=== PATIENT | male | born 1990 | race African-American/Black ===

== ENCOUNTER 2018-08-29 17:50 | Emergency (ER) | payer SELFPAY ==
[2018-08-29] MEDS ORDERED: TETRACAINE HCL 0.5% 2ML OPTH ONE (18:23)
[2018-08-29] MEDS ORDERED: FLUORESCEIN SODIUM 0.6 MG/WRAP ONE ×2 (18:24→18:53)
[2018-08-29] MEDS ORDERED: TETANUS & DIPHTHERIA TOX,ADULT 0.5 ML VIAL ONE (19:34)
[2018-08-29] MEDS ORDERED: TOBRAMYCIN SULF 0.3% OPTH OINT ONE (19:42)
[2018-08-29] MEDS ORDERED: GENTAMICIN 0.3% OPTH DROP 5ML ONE (19:45)
--- NOTE | 2018-08-29 19:53 | ER ---
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 Transition of care: patient was not received from another setting of care. Onset of symptoms was August 29, 2018. Risk Assessment: Do you want to hurt yourself or someone else? Patient reports no desire to harm self or others. Initial Sepsis Screen: Does the patient meet any 2 criteria? No. Patient's initial sepsis screen is negative. Does the patient have a suspected source of infection? No. Patient's initial sepsis screen is negative. Care prior to arrival: None. 18:18 Method Of Arrival: Ambulatory ph 18:18 Acuity: SHADY 4 ph Triage Assessment: 18:23 General: Appears in no apparent distress. comfortable, Behavior is calm, cooperative, bp appropriate for age. Historical: - Allergies: 18:21 No Known Allergies; ph - Home Meds: 18:21 None [Active]; ph - PMHx: 18:21 None; ph - PSHx: 18:21 None; ph - Immunization history:: Adult Immunizations unknown. - Social history:: Smoking status: Patient uses tobacco products, denies chronic smoking, but will smoke occasionally. - Ebola Screening: : No symptoms or risks identified at this time. Screenin:20 Abuse screen: Denies threats or abuse. Denies injuries from another. Nutritional bp screening: No deficits noted. Tuberculosis screening: No symptoms or risk factors identified. Fall Risk None identified. Assessment: 18:18 General: Appears in no apparent distress. comfortable, Behavior is calm, cooperative, bp appropriate for age. Pain: Complains of pain in right eye and left eye. Neuro: Level of Consciousness is awake, alert, obeys commands, Oriented to person, place, time, situation, Appropriate for age. Cardiovascular: No deficits noted. Respiratory: Airway is patent Respiratory effort is even, unlabored, Respiratory pattern is regular, symmetrical. GI: No signs and/or symptoms were reported involving the gastrointestinal system. : No signs and/or symptoms were reported regarding the genitourinary system. EENT: Reports blurred vision in right eye and left eye. Derm: No deficits noted. Musculoskeletal: Circulation, motion, and sensation intact. Range of motion: intact in all extremities. 19:28 Reassessment: Patient appears in no apparent distress at this time. Patient and/or ed1 family updated on plan of care and expected duration. Pain level reassessed. Patient is alert, oriented x 3, equal unlabored respirations, skin warm/dry/pink. Patient states feeling better. Patient states symptoms have improved. 20:18 Reassessment: Patient appears in no apparent distress at this time. Patient and/or ed1 family updated on plan of care and expected duration. Pain level reassessed. Patient is alert, oriented x 3, equal unlabored respirations, skin warm/dry/pink. Patient states feeling better. Patient states symptoms have improved. Vital Signs: 18:20 BP 142 / 99; Pulse 78; Resp 18; Temp 98.2; Pulse Ox 99% on R/A; Weight 95.25 kg; Height ph 5 ft. 11 in. (180.34 cm); 19:28 BP 136 / 79; Pulse 76; Resp 18; Pulse Ox 97% on R/A; Pain 4/10; ed1 20:18 BP 137 / 81; Pulse 76; Resp 16; Temp 97.5(O); Pulse Ox 99% on R/A; Pain 2/10; ed1 18:20 Body Mass Index 29.29 (95.25 kg, 180.34 cm) ph Visual Acuity: 18:38 Left Eye Visual acuity 20/20, ; Right Eye Visual acuity 20/25, ; Both Eyes Visual bp acuity 20/20; Without Lenses; ED Course: 17:54 Patient arrived in ED. as 18:12 Louie Erazo, JOSE is Primary Nurse. bp 18:20 Naga Goins NP is PHCP. pm1 18:20 Indio Bourgeois MD is Attending Physician. pm1 18:20 Triage completed. ph 18:20 Patient has correct armband on for positive identification. Bed in low position. Call bp light in reach. Side rails up X2. 18:22 Kee Thornton MD is Attending Physician. wang 20:18 No provider procedures requiring assistance completed. Patient did not have IV access ed1 during this emergency room visit. 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 Lot #: [id number]. } Route: IM; Site: left deltoid; 20:01 Follow up: Response: No adverse reaction ed1 19:38 Not Given (Other Intervention Used): Tobramycin Drops (0.3 %) 2 drops Ophthalmic once; ed1 bilateral 19:39 Drug: Gentamicin Drops 0.3 % 2 drops Route: Ophthalmic; Site: both eyes; ed1 20:00 Follow up: Response: No adverse reaction ed1 Outcome: 19:53 Discharge ordered by MD. pm1 20:18 Discharged to home ambulatory. ed1 20:18 Condition: good 20:18 Discharge instructions given to patient, Instructed on discharge instructions, follow up and referral plans. medication usage, Demonstrated understanding of instructions, follow-up care, medications, Prescriptions given X 1. 20:20 Patient left the ED. ed1 Signatures: Kee Thornton MD MD cha Martinez, Amelia as Riggs, Erika, EGG CASER EGG CASER ed1 Sara Marx, RN RN Naga Goins, RAKESH COMMUNICABLE DISEASE SPECIALIST pm1 Louie Erazo, JOSE RN bp Corrections: (The following items were deleted from the chart) 18:20 18:18 Pain: Complains of pain in left eye bp bp 18:20 18:18 EENT: No deficits noted. bp bp
--- NOTE | 2018-08-29 19:54 | EDPHYS ---
Physician Documentation [facility] Name: Rober Pickett Age: 28 yrs Sex: Male : 1990 Arrival Date: 08/29/2018 Time: 17:54 Bed 8 Private MD: ED Physician Kee Thornton HPI: 08/29 19:39 This 28 yrs old Black Male presents to ER via Ambulatory with complaints of Foreign pm1 Body In Eye. 19:39 The patient is experiencing foreign body sensation, caused by debris, dust, possibly pm1 fiberglass at work. Onset: The symptoms/episode began/occurred 2 day(s) ago. Duration: the symptoms are continuous. Aggravated by nothing. Alleviated by eye flush. Patient does not utilize any form of vision correction. Severity of symptoms: in the emergency department the symptoms are unchanged. The patient has not experienced similar symptoms in the past. 19:39 At work with safety glasses and mask. Thinks that when they were dropping the pm1 insulation to the floor the dust from it got stirred into the air and got into his eyes. has been flushing his eyes with water daily. No change in vision. Historical: - Allergies: 18:21 No Known Allergies; ph - Home Meds: 18:21 None [Active]; ph - PMHx: 18:21 None; ph - PSHx: 18:21 None; ph - Immunization history:: Adult Immunizations unknown. - Social history:: Smoking status: Patient uses tobacco products, denies chronic smoking, but will smoke occasionally. - Ebola Screening: : No symptoms or risks identified at this time. ROS: 19:39 Constitutional: Negative for fever, chills, and weight loss. pm1 19:39 ENT: Negative for injury, pain, and discharge, Neck: Negative for injury, pain, and swelling, Cardiovascular: Negative for chest pain, palpitations, and edema, Respiratory: Negative for shortness of breath, cough, wheezing, and pleuritic chest pain, Abdomen/GI: Negative for abdominal pain, nausea, vomiting, diarrhea, and constipation, Back: Negative for injury and pain, : Negative for injury, bleeding, discharge, and swelling, MS/Extremity: Negative for injury and deformity, Skin: Negative for injury, rash, and discoloration, Neuro: Negative for headache, weakness, numbness, tingling, and seizure. 19:39 Eyes: Positive for foreign body sensation, pain, Negative for vision loss, visual disturbance. Exam: 19:39 Visual Acuity: I have reviewed the nursing documentation. pm1 19:39 Constitutional: This is a well developed, well nourished patient who is awake, alert, and in no acute distress. Head/Face: Normocephalic, atraumatic. 19:39 ENT: Nares patent. No nasal discharge, no septal abnormalities noted. Tympanic membranes are normal and external auditory canals are clear. Oropharynx with no redness, swelling, or masses, exudates, or evidence of obstruction, uvula midline. Mucous membranes moist. Neck: Trachea midline, no thyromegaly or masses palpated, and no cervical lymphadenopathy. Supple, full range of motion without nuchal rigidity, or vertebral point tenderness. No Meningismus. Chest/axilla: Normal chest wall appearance and motion. Nontender with no deformity. No lesions are appreciated. Cardiovascular: Regular rate and rhythm with a normal S1 and S2. No gallops, murmurs, or rubs. Normal PMI, no JVD. No pulse deficits. Respiratory: Lungs have equal breath sounds bilaterally, clear to auscultation and percussion. No rales, rhonchi or wheezes noted. No increased work of breathing, no retractions or nasal flaring. Abdomen/GI: Soft, non-tender, with normal bowel sounds. No distension or tympany. No guarding or rebound. No evidence of tenderness throughout. Back: No spinal tenderness. No costovertebral tenderness. Full range of motion. Skin: Warm, dry with normal turgor. Normal color with no rashes, no lesions, and no evidence of cellulitis. MS/ Extremity: Pulses equal, no cyanosis. Neurovascular intact. Full, normal range of motion. 19:39 Eyes: Periorbital structures: appear normal, no swelling, Pupils: no acute changes, normal size, normal reaction to light, Extraocular movements: intact throughout, Conjunctiva: no acute changes, no injection, no abnormal tearing, Corneas: abrasion, is not appreciated, foreign body, is not appreciated, a fluorescein strip employed to appreciate the findings, Anterior chamber: normal, Lids and lashes: appear normal. 19:39 Neuro: Orientation: is normal, Motor: is normal, moves all fours, Gait: is steady, at a normal pace, without difficulty. Vital Signs: 18:20 BP 142 / 99; Pulse 78; Resp 18; Temp 98.2; Pulse Ox 99% on R/A; Weight 95.25 kg; Height ph 5 ft. 11 in. (180.34 cm); 19:28 BP 136 / 79; Pulse 76; Resp 18; Pulse Ox 97% on R/A; Pain 4/10; ed1 20:18 BP 137 / 81; Pulse 76; Resp 16; Temp 97.5(O); Pulse Ox 99% on R/A; Pain 2/10; ed1 18:20 Body Mass Index 29.29 (95.25 kg, 180.34 cm) ph Visual Acuity: 18:38 Left Eye Visual acuity 20/20, ; Right Eye Visual acuity 20/25, ; Both Eyes Visual bp acuity 20/20; Without Lenses; MDM: 18:22 Patient medically screened. wang 19:43 Data reviewed: vital signs. Data interpreted: Pulse oximetry: on room air is 97 %. pm1 Interpretation: normal. Counseling: I had a detailed discussion with the patient and/or guardian regarding: the historical points, exam findings, and any diagnostic results supporting the discharge/admit diagnosis, the need for outpatient follow up, an opthalmologist, to return to the emergency department if symptoms worsen or persist or if there are any questions or concerns that arise at home. 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 Lot #: [id number]. } Route: IM; Site: left deltoid; 20:01 Follow up: Response: No adverse reaction ed1 19:38 Not Given (Other Intervention Used): Tobramycin Drops (0.3 %) 2 drops Ophthalmic once; ed1 bilateral 19:39 Drug: Gentamicin Drops 0.3 % 2 drops Route: Ophthalmic; Site: both eyes; ed1 20:00 Follow up: Response: No adverse reaction ed1 Disposition: 08/29/18 19:53 Discharged to Home. Impression: Foreign body sensation bilateral eyes. - Condition is Stable. - Discharge Instructions: Corneal Abrasion. - Prescriptions for Tobrex 0.3 % Ophthalmic ointment - apply 0.5 inch ribbon by OPHTHALMIC route every 8 hours for 7 days; 1 tube. - Work release form, Medication Reconciliation Form, Thank You Letter, Antibiotic Education, Prescription Opioid Use form. - Follow up: Emergency Department; When: As needed; Reason: Worsening of condition. Follow up: Private Physician; When: 2 - 3 days; Reason: Recheck today's complaints, Continuance of care, Re-evaluation by your physician. - Problem is new. - Symptoms have improved. Addendum: 09/02/2018 06:55 Co-signature as Attending Physician, Kee Thornton MD I agree with the assessment and c tang plan of care. Signatures: Kee Thornton MD MD cha Riggs, Erika, ELASTIC TAPE INSERTER ELASTIC TAPE INSERTER ed1 Sara Marx, RN RN ph Naga Goins, AGENCY OWNER AGENCY OWNER pm1 Louie Erazo, RN RN bp Corrections: (The following items were deleted from the chart) 08/29 20:20 19:53 08/29/2018 19:53 Discharged to Home. Impression: Foreign body sensation bilateral ed1 eyes. Condition is Stable. Forms are Medication Reconciliation Form, Thank You Letter, Antibiotic Education, Prescription Opioid Use. Follow up: Emergency Department; When: As needed; Reason: Worsening of condition. Follow up: Private Physician; When: 2 - 3 days; Reason: Recheck today's complaints, Continuance of care, Re-evaluation by your physician. Problem is new. Symptoms have improved. pm1
[2018-08-29 20:49] VITALS: O2SAT 99
[2018-08-29 20:57] VITALS: BP 137/81; TEMP 97.5
== END 2018-08-29 20:20 | disposition home or self-care (01) ==
LOC: ER 17:50
DX: T15.92XA Foreign body on external eye, part unspecified, left eye, initial encounter (principal); T15.91XA Foreign body on external eye, part unspecified, right eye, initial encounter; X58.XXXA Exposure to other specified factors, initial encounter; Y99.0 Civilian activity done for income or pay; Z23 Encounter for immunization; Z72.0 Tobacco use
CPT/HCPCS: 90714; 99283

== ENCOUNTER 2019-03-29 14:36 | Emergency (ER) | payer SELFPAY ==
[2019-03-29 14:57] LABS: Absolute Lymphocytes (CBC) 2.8 K/uL (0.7-4.9); Hematocrit 46.6 % (39.6-49.0); Lymphocytes % 28.6 % (15.3-44.8); MPV 9.7 fL (7.6-11.3); RBC Red Blood Cell Count 5.37 M/uL (4.33-5.43)
--- NOTE | 2019-03-29 15:14 | RAD REPORT ---
EXAM DESCRIPTION: CT - Stone Protocol - 03/29/2019 3:01 pm CLINICAL HISTORY: Lower back pain, dysuria, hematuria COMPARISON: None. TECHNIQUE: Axial 5 mm thick images were obtained without oral or IV contrast. The [id number] span s the entirety of the system including uppermost abdomen and lung bases. All CT scans are performed using dose optimization technique as appropriate and may include automated exposure control or mA/KV adjustment according to patient size. FINDINGS: No hydronephrosis is present and no obstructing ureteral calculi. No suspicious renal mass es. Isodense masses and pyelonephritis are not excluded on a stone protocol CT scan. No bladder wall thickening suspected. No bladder calculus identifiable. A few phleboliths are seen in the lower right pelvis. No significant adrenal finding. Imaged portions of the liver, spleen and pancreas show no suspicious findings on non-contrast imaging . No gallbladder or biliary tree abnormality identified. No suspicious bowel findings. No hernia, mass or bulky lymphadenopathy noted. No free air, free fluid or inflammatory stranding. No significant bony abnormality. IMPRESSION: Negative CT stone protocol study. Isodense masses and pyelonephritis are not excluded on stone protocol technique. No abnormality to explain the multiple symptoms.
[2019-03-29 15:19] LABS: Albumin 4.6 g/dL (3.4-5.0); Bilirubin Direct 0.1 mg/dL (0-0.2); Bilirubin Total 0.6 mg/dL (0.2-1.0); Potassium 3.7 mmol/L (3.5-5.1); Protein, Total 8.3 g/dL (6.4-8.2)
[2019-03-29] MEDS ORDERED: NA CHLORIDE 0.9% 1,000 ML ONE ×2 (15:39→16:11)
[2019-03-29] MEDS ORDERED: KETOROLAC 30 MG/ML INJ ONE (17:16)
[2019-03-29 17:55] LABS: Urine Blood 2+ (NEG); Urine Glucose NEGATIVE (NEG); Urine Protein TRACE (NEG); Urine Specific Gravity 1.025 (1.005-1.030)
--- NOTE | 2019-03-29 18:10 | EDPHYS ---
Physician Documentation [facility] Name: Rober Pickett Age: 28 yrs Sex: Male : 1990 Arrival Date: 03/29/2019 Time: 14:41 Bed 6 Private MD: ED Physician Kee Thornton HPI: 03/29 14:45 This 28 yrs old Black Male presents to ER via EMS with complaints of Back Pain. jmm 14:45 The patient presents with pain that is acute. Onset: The symptoms/episode jmm began/occurred acutely, 3 day(s) ago. Associated signs and symptoms: Pertinent negatives: vomiting. This is a 28 year old male with a history of htn that presents to the ED with complaints of left flank pain, hematuria for the past 3 days. States having a history of kidney infections. . Historical: - Allergies: 14:42 No Known Allergies; aa5 - PMHx: 14:42 Hypertension; aa5 - PSHx: 14:42 None; aa5 - Immunization history:: Adult Immunizations unknown. - Social history:: Smoking status: Patient uses tobacco products, denies chronic smoking, but will smoke occasionally. - Ebola Screening: : No symptoms or risks identified at this time. ROS: 14:45 Constitutional: Negative for fever, chills, and weight loss, Cardiovascular: Negative jmm for chest pain, palpitations, and edema, Respiratory: Negative for shortness of breath, cough, wheezing, and pleuritic chest pain. 14:45 Abdomen/GI: Positive for abdominal pain. 14:45 Back: Positive for flank pain, on the left. 14:45 : Positive for hematuria. 14:45 All other systems are negative. Exam: 14:45 Head/Face: atraumatic. Eyes: EOMI, no conjunctival erythema appreciated ENT: Moist jmm Mucus Membranes Neck: Trachea midline, Supple Chest/axilla: Normal chest wall appearance and motion. Cardiovascular: Regular rate and rhythm. No edema appreciated Respiratory: Normal respirations, no respiratory distress appreciated 14:45 Constitutional: The patient appears in no acute distress, alert, awake. 14:45 Abdomen/GI: Inspection: abdomen appears normal, Bowel sounds: normal, Palpation: abdomen is soft and non-tender, in all quadrants. 14:45 Back: CVA tenderness, that is mild, is noted on the left. 14:45 : Male external genitalia: normal. 14:45 Neuro: Orientation: is normal, Mentation: is normal, Memory: is normal. 14:45 Psych: Behavior/mood is pleasant, cooperative. Vital Signs: 14:42 BP 162 / 102; Pulse 57; Resp 18; Temp 98.3(TE); Pulse Ox 100% on R/A; Weight 83.91 kg aa5 (R); Height 5 ft. 9 in. (175.26 cm) (R); Pain 7/10; 15:44 BP 127 / 83; Pulse 58; Resp 18 S; Pulse Ox 98% on R/A; Pain 5/10; aa5 16:15 BP 126 / 74; Pulse 56; Resp 16; Pulse Ox 100% ; jl7 14:42 Body Mass Index 27.32 (83.91 kg, 175.26 cm) aa5 MDM: 14:45 Patient medically screened. [facility] 16:50 Data reviewed: vital signs, nurses notes. Counseling: I had a detailed discussion with juarez the patient and/or guardian regarding: the historical points, exam findings, and any diagnostic results supporting the discharge/admit diagnosis, lab results, radiology results, the need for outpatient follow up, to return to the emergency department if symptoms worsen or persist or if there are any questions or concerns that arise at home. ED course: Patient is alert and non toxic in appearance. UA concerning for hematuria and dehydration. Patient given IVF. Patient tolerates PO in the ED. CT negative. CMP WNL. I discussed the patient the need to follow up with Urology for further evaluation of hematuria. Patient otherwise given strict return precautions. Patient understood and agrees with the plan of care. . 03/29 14:45 Order name: Basic Metabolic Panel [facility] 03/29 14:45 Order name: CBC with Diff [facility] 03/29 14:45 Order name: Creatinine for Radiology; Complete Time: 15:22 [facility] 03/29 14:45 Order name: Hepatic Function; Complete Time: 15:22 [facility] 03/29 14:45 Order name: Lipase; Complete Time: 15:22 [facility] 03/29 14:46 Order name: Basic Metabolic Panel; Complete Time: 15:22 [facility] 03/29 14:45 Order name: CT Stone Protocol; Complete Time: 15:22 [facility] 03/29 14:46 Order name: CBC with Automated Diff; Complete Time: 15:22 [facility] 03/29 15:48 Order name: Urine Dipstick--Ancillary (enter results); Complete Time: 18:02 em1 03/29 16:05 Order name: CPK; Complete Time: 16:38 [facility] 03/29 17:04 Order name: US Scrotum Testicles [facility] 03/29 14:45 Order name: IV Saline Lock; Complete Time: 14:52 [facility] 03/29 14:45 Order name: Labs collected and sent; Complete Time: 14:52 [facility] 03/29 14:45 Order name: Urine Dipstick-Ancillary (obtain specimen); Complete Time: 15:30 [facility] 03/29 16:52 Order name: PO challenge; Complete Time: 17:18 [facility] Administered Medications: 15:35 Drug: NS 0.9% 1000 ml Route: IV; Rate: 1 bolus; Site: left antecubital; aa5 16:44 Follow up: IV Status: Completed infusion; IV Intake: 1000ml aa5 16:12 Drug: NS 0.9% 1000 ml Route: IV; Rate: 1 bolus; Site: left antecubital; aa5 18:25 Follow up: IV Status: Completed infusion; IV Intake: 1000ml aa5 17:18 Drug: Ketorolac 30 mg Route: IVP; Site: left antecubital; iw 17:26 Follow up: Response: No adverse reaction aa5 18:25 Drug: Tylenol 650 mg Route: PO; aa5 18:25 Follow up: Response: Medication administered at discharge. aa5 Disposition: 03/30 10:08 Co-signature as Attending Physician, Kee Thornton MD I agree with the assessment and wang plan of care. Disposition: 03/29/19 18:09 Discharged to Home. Impression: Hematuria, Flank Pain. - Condition is Stable. - Discharge Instructions: Flank Pain, Adult, Hematuria, Adult. - Prescriptions for Ibuprofen 600 mg Oral Tablet - take 1 tablet by ORAL route every 8-12 hours As needed take with food; 30 tablet. - Medication Reconciliation Form, Thank You Letter, Antibiotic Education, Prescription Opioid Use, Work release form form. - Follow up: Sloane Prahdan MD; When: 1 - 2 days; Reason: Recheck today's complaints, Continuance of care, Re-evaluation by your physician. Signatures: Dispatcher [employer] EDKee Brandt MD MD cha Mickail, Joel, PA PA jmm Williams, Irene, RN RN iw Jessica Apple RN RN aa5 Corrections: (The following items were deleted from the chart) 03/29 18:31 18:09 03/29/2019 18:09 Discharged to Home. Impression: Hematuria; Flank Pain. Condition aa5 is Stable. Forms are Medication Reconciliation Form, Thank You Letter, Antibiotic Education, Prescription Opioid Use. Follow up: Sloane Pradhan; When: 1 - 2 days; Reason: Recheck today's complaints, Continuance of care, Re-evaluation by your physician. juarez
--- NOTE | 2019-03-29 18:10 | ER ---
Nurse's Notes [facility] Name: Rober Pickett Age: 28 yrs Sex: Male : 1990 Arrival Date: 03/29/2019 Time: 14:41 Bed 6 Private MD: Diagnosis: Hematuria;Flank Pain Presentation: 03/29 14:42 Presenting complaint: Patient states: lower back pain that began 3 days ago. Pt also aa5 reports pain with urination, blood in urine, and decreased urinary output today. Pt states "I work outside in the heat so maybe I am dehydrated". Pt reports nausea and decreased appetite, denies vomiting, denies diarrhea. Transition of care: Under custody with [place] [employer] at bedside. Onset of symptoms was March 2019. Risk Assessment: Do you want to hurt yourself or someone else? Patient reports no desire to harm self or others. Initial Sepsis Screen: Does the patient meet any 2 criteria? No. Patient's initial sepsis screen is negative. Does the patient have a suspected source of infection? No. Patient's initial sepsis screen is negative. Care prior to arrival: None. 14:42 Acuity: SHADY 3 aa5 14:42 Method Of Arrival: EMS: [facility] aa5 Historical: - Allergies: 14:42 No Known Allergies; aa5 - PMHx: 14:42 Hypertension; aa5 - PSHx: 14:42 None; aa5 - Immunization history:: Adult Immunizations unknown. - Social history:: Smoking status: Patient uses tobacco products, denies chronic smoking, but will smoke occasionally. - Ebola Screening: : No symptoms or risks identified at this time. Screenin:45 Abuse screen: Denies threats or abuse. Nutritional screening: No deficits noted. aa5 Tuberculosis screening: No symptoms or risk factors identified. Fall Risk None identified. Assessment: 14:46 General: Appears comfortable, Behavior is calm, cooperative. Pain: Complains of pain in aa5 left low back and right low back Pain does not radiate. Pain currently is 7 out of 10 on a pain scale. Quality of pain is described as sharp, Pain began 2-3 days ago. Is continuous. Neuro: Level of Consciousness is awake, alert, obeys commands, Oriented to person, place, time, situation. Cardiovascular: Heart tones S1 S2 present Rhythm is regular. Respiratory: Airway is patent Respiratory effort is even, unlabored, Respiratory pattern is regular, symmetrical. GI: Abdomen is flat, non-distended, Bowel sounds present X 4 quads. Abd is soft X 4 quads Abdomen is tender to palpation in left upper quadrant and left lower quadrant Reports nausea, Patient currently denies diarrhea, vomiting. : Reports pain with urination, blood in urine and decreased urinary output. EENT: No signs and/or symptoms were reported regarding the EENT system. Derm: Skin is dry, Skin is normal, Skin temperature is warm. Musculoskeletal: Range of motion: intact in all extremities. 15:44 Neuro: Level of Consciousness is awake, alert, obeys commands, Oriented to person, aa5 place, time, situation. Respiratory: Airway is patent Respiratory effort is even, unlabored, Respiratory pattern is regular, symmetrical. Derm: Skin is dry, Skin is normal, Skin temperature is warm. 15:44 Pain: Pain currently is 5 out of 10 on a pain scale. aa5 17:03 Reassessment: Pt c/o increased pain and c/o testicular pain at this time. 8/10 on a aa5 pain scale. PA was notified. . 17:03 Neuro: Level of Consciousness is awake, alert, obeys commands, Oriented to person, aa5 place, time, situation. Respiratory: Airway is patent Respiratory effort is even, unlabored, Respiratory pattern is regular, symmetrical. Derm: Skin is dry, Skin is normal, Skin temperature is warm. 17:26 Reassessment: Awaiting US, pt notified of wait time . aa5 18:25 Neuro: Level of Consciousness is awake, alert, obeys commands, Oriented to person, aa5 place, time, situation. Respiratory: Airway is patent Respiratory effort is even, unlabored, Respiratory pattern is regular, symmetrical. Derm: Skin is dry, Skin is normal, Skin temperature is warm. 18:25 Pain: Pain currently is 6 out of 10 on a pain scale. aa5 Vital Signs: 14:42 BP 162 / 102; Pulse 57; Resp 18; Temp 98.3(TE); Pulse Ox 100% on R/A; Weight 83.91 kg aa5 (R); Height 5 ft. 9 in. (175.26 cm) (R); Pain 7/10; 15:44 BP 127 / 83; Pulse 58; Resp 18 S; Pulse Ox 98% on R/A; Pain 5/10; aa5 16:15 BP 126 / 74; Pulse 56; Resp 16; Pulse Ox 100% ; jl7 14:42 Body Mass Index 27.32 (83.91 kg, 175.26 cm) aa5 ED Course: 14:41 Patient arrived in ED. aa5 14:42 Andrés Delarosa PA is PHCP. jmm 14:42 Arm band placed on. aa5 14:42 Patient has correct armband on for positive identification. Placed in gown. Bed in low aa5 position. Call light in reach. Side rails up X 1. 14:43 Kee Thornton MD is Attending Physician. jm 14:44 Triage completed. aa5 14:45 Jessica Apple, JOSE is Primary Nurse. aa5 14:50 Initial lab(s) drawn, by ED staff, sent to lab. Inserted saline lock: 22 gauge in left aa5 ,using aseptic technique. IV inserted by Jeanna Lopez RN Blood collected. 14:58 CT completed. Patient tolerated procedure well. Patient moved back from CT. bq 15:05 CT Stone Protocol In Process Unspecified. EDMS 16:49 Basic Metabolic Panel Sent. jl7 16:49 CBC with Diff Sent. jl 18:08 Sloane Pradhan MD is Referral Physician. [facility] 18:25 No provider procedures requiring assistance completed. IV discontinued, intact, aa5 bleeding controlled, No redness/swelling at site. Pressure dressing applied. 18:59 US Scrotum Testicles In Process Unspecified. EDMS Administered Medications: 15:35 Drug: NS 0.9% 1000 ml Route: IV; Rate: 1 bolus; Site: left antecubital; aa5 16:44 Follow up: IV Status: Completed infusion; IV Intake: 1000ml aa5 16:12 Drug: NS 0.9% 1000 ml Route: IV; Rate: 1 bolus; Site: left antecubital; aa5 18:25 Follow up: IV Status: Completed infusion; IV Intake: 1000ml aa5 17:18 Drug: Ketorolac 30 mg Route: IVP; Site: left antecubital; iw 17:26 Follow up: Response: No adverse reaction aa5 18:25 Drug: Tylenol 650 mg Route: PO; aa5 18:25 Follow up: Response: Medication administered at discharge. aa5 Intake: 16:44 IV: 1000ml; Total: 1000ml. aa5 18:25 IV: 1000ml; Total: 2000ml. aa5 Output: 15:47 Urine: 100ml (Voided); Total: 100ml. aa5 Outcome: 18:09 Discharge ordered by . juarez 18:25 Discharged to law enforcement ([place] [employer]) aa5 18:25 Condition: stable 18:25 Discharge instructions given to patient, Instructed on discharge instructions, follow up and referral plans. medication usage, Demonstrated understanding of instructions, follow-up care, medications, Prescriptions given X 1. 18:31 Patient left the ED. aa5 Signatures: Dispatcher [employer] EDMS Andrés Delarosa PA PA jmm Quilty, Betty bq Williams, Irene, RN Jessica Granado RN RN aa5 Jeanna Lopez RN RN jl7
[2019-03-29] MEDS ORDERED: ACETAMINOPHEN 325 MG TABLET ONE (18:23)
[2019-03-29 20:24] VITALS: TEMP 98.3
[2019-03-29 20:27] VITALS: BP 126/74; O2SAT 100
--- NOTE | 2019-03-29 20:36 | RAD REPORT ---
EXAM DESCRIPTION: US - Scrotum Testicles - 03/29/2019 6:57 pm CLINICAL HISTORY: Left-sided testicular pain COMPARISON: None. FINDINGS: Bilateral testicular tissue is homogeneous. No focal mass. Doppler evaluation shows normal , symmetric blood flow pattern. No epididymis enlargement or hyperemia. Minimal left hydrocele. No va ricocele or hernia seen. IMPRESSION: Minimal left hydrocele. No other significant finding.
== END 2019-03-29 18:31 | disposition home or self-care (01) ==
LOC: ER 14:36
DX: R10.9 Unspecified abdominal pain (principal); I10 Essential (primary) hypertension; Z72.0 Tobacco use; Z87.442 Personal history of urinary calculi
CPT/HCPCS: 36415; 74176; 76377; 76870; 80048; 80076; 81003; 82550; 83690; 85025; 96361; 96374; 99284; J7030

== ENCOUNTER 2020-06-13 10:40 | Emergency (ER) | payer SELFPAY ==
--- NOTE | 2020-06-13 11:38 | RAD REPORT ---
EXAM DESCRIPTION: RAD - Lumbar Spine 3 Views - 06/13/2020 11:30 am CLINICAL HISTORY: PAIN Radiculopathy COMPARISON: No comparisons FINDINGS: Vertebral body heights appear maintained. No compression fracture noted. Mild disc thinnin g at L5-S1. No spondylolysis or spondylolisthesis. IMPRESSION: Mild lumbosacral spondylosis.
--- NOTE | 2020-06-13 11:38 | RAD REPORT ---
EXAM DESCRIPTION: RAD - Knee Right 3 View - 06/13/2020 11:30 am CLINICAL HISTORY: PAIN COMPARISON: No comparisons FINDINGS: No bone or joint abnormality.
--- NOTE | 2020-06-13 12:14 | EDPHYS ---
Physician Documentation [facility] Name: Rober Pickett Age: 30 yrs Sex: Male : 1990 Arrival Date: 06/13/2020 Time: 10:44 Bed 20 Private MD: MARLEN Physician Kee Thornton HPI: 06/13 12:13 This 30 yrs old Black Male presents to ER via Ambulatory with complaints of Knee Pain, jr8 Back Pain. 12:13 . The patient presents for lower back pain and R knee pain x 1 week. The patient states jr8 that he fell 14 ft from a tree and landed on his lower back. Denies LOC, but reports that his R knee has been giving out since then. Reports that he is has full ROM of the back but experiences soreness when moving. Denies loss of bowel, bladder, or inability to ambulate. States that he previously tore his L meniscus and is concerned that he may have torn his R meniscus due to similar symptoms.. Historical: - Allergies: 10:48 No Known Allergies; aa5 - PMHx: 10:48 Hypertension; aa5 - PSHx: 10:48 None; aa5 - Immunization history:: Adult Immunizations unknown. - Social history:: Smoking status: Patient reports the use of cigarette tobacco products, 1-2 cigarettes a day . ROS: 12:15 Eyes: Negative for injury, pain, redness, and discharge, ENT: Negative for injury, jr8 pain, and discharge, Neck: Negative for injury, pain, and swelling, Cardiovascular: Negative for chest pain, palpitations, and edema, Respiratory: Negative for shortness of breath, cough, wheezing, and pleuritic chest pain, Abdomen/GI: Negative for abdominal pain, nausea, vomiting, diarrhea, and constipation, Skin: Negative for injury, rash, and discoloration, Neuro: Negative for headache, weakness, numbness, tingling, and seizure. 12:15 Back: Positive for pain at rest, pain with movement, of the low back area, Negative for decreased range of motion, radiated pain. 12:15 MS/extremity: Positive for abrasion, pain, tenderness, of the right knee. Exam: 12:15 Head/Face: Normocephalic, atraumatic. Eyes: Pupils equal round and reactive to light, jr8 extra-ocular motions intact. Lids and lashes normal. Conjunctiva and sclera are non-icteric and not injected. Cornea within normal limits. Periorbital areas with no swelling, redness, or edema. ENT: Nares patent. No nasal discharge, no septal abnormalities noted. Tympanic membranes are normal and external auditory canals are clear. Oropharynx with no redness, swelling, or masses, exudates, or evidence of obstruction, uvula midline. Mucous membranes moist. Neck: Trachea midline, no thyromegaly or masses palpated, and no cervical lymphadenopathy. Supple, full range of motion without nuchal rigidity, or vertebral point tenderness. No Meningismus. Chest/axilla: Normal chest wall appearance and motion. Nontender with no deformity. No lesions are appreciated. Cardiovascular: Regular rate and rhythm with a normal S1 and S2. No gallops, murmurs, or rubs. Normal PMI, no JVD. No pulse deficits. Respiratory: Lungs have equal breath sounds bilaterally, clear to auscultation and percussion. No rales, rhonchi or wheezes noted. No increased work of breathing, no retractions or nasal flaring. Abdomen/GI: Soft, non-tender, with normal bowel sounds. No distension or tympany. No guarding or rebound. No evidence of tenderness throughout. Skin: Warm, dry with normal turgor. Normal color with no rashes, no lesions, and no evidence of cellulitis. Neuro: Awake and alert, GCS 15, oriented to person, place, time, and situation. Cranial nerves II-XII grossly intact. Motor strength 5/5 in all extremities. Sensory grossly intact. Cerebellar exam normal. Normal gait. 12:15 Back: pain, that is mild, of the low back area, ROM is painful, normal spinal alignment noted, CVA tenderness, is absent. 12:15 Musculoskeletal/extremity: Extremities: grossly normal except: noted in the right knee: abrasion, pain, tenderness, to anterior portion of knee around patella , ROM: intact in all extremities, full active range of motion, full passive range of motion, limited active range of motion due to pain, limited passive range of motion due to pain, Circulation is intact in all extremities. Sensation intact. Weight bearing: able to fully bear weight, without difficulty. Vital Signs: 10:45 BP 129 / 87; Pulse 62; Resp 18 S; Temp 97.2(O); Pulse Ox 96% on R/A; Weight 83.91 kg aa5 (R); Height 5 ft. 10 in. (177.80 cm) (R); Pain 6/10; 11:49 BP 117 / 80; Pulse 64; Resp 17; Pulse Ox 98% ; bp 12:33 BP 115 / 75; Pulse 63; Resp 16; Pulse Ox 98% ; bp 10:45 Body Mass Index 26.54 (83.91 kg, 177.80 cm) aa5 MDM: 10:55 Patient medically screened. jr8 12:13 Data reviewed: vital signs, nurses notes, radiologic studies, plain films, and as a jr8 result, I will discharge patient. Data interpreted: Pulse oximetry: on room air is 98 %. Interpretation: normal. Counseling: I had a detailed discussion with the patient and/or guardian regarding: the historical points, exam findings, and any diagnostic results supporting the discharge/admit diagnosis, radiology results, the need for outpatient follow up, a orthopedic surgeon, to return to the emergency department if symptoms worsen or persist or if there are any questions or concerns that arise at home. 06/13 11:05 Order name: XRAY Knee RIGHT 3 view; Complete Time: 12:12 jr8 06/13 11:06 Order name: XRAY Lumbar Spine (3 Views); Complete Time: 12:12 jr8 Administered Medications: No medications were administered Disposition: 15:56 Co-signature as Attending Physician, Kee Thornton MD I agree with the assessment and wang plan of care. Disposition: 06/13/20 12:13 Discharged to Home. Impression: Low back pain, Pain in right knee. - Condition is Stable. - Discharge Instructions: Back Pain, Adult, Musculoskeletal Pain, Knee Pain, Heat Therapy. - Prescriptions for meloxicam 15 mg Oral tablet - take 1 tablet by ORAL route once daily As needed; 20 tablet. Robaxin 500 mg Oral Tablet - take 2 tablet by ORAL route every 6 hours As needed; 40 tablet. - Medication Reconciliation Form, Thank You Letter, Antibiotic Education, Prescription Opioid Use, Work release form form. - Follow up: Edwardo Kyle MD; When: 5 - 6 days; Reason: Recheck today's complaints, Continuance of care, Re-evaluation by your physician. - Problem is new. - Symptoms have improved. Signatures: Dispatcher [employer] EDMS Kee Thornton MD MD cha Williams, Irene, RN RN iw Jessica Apple, RN RN aa5 Kenrick Roman PA PA jr8 Corrections: (The following items were deleted from the chart) 12:38 12:13 06/13/2020 12:13 Discharged to Home. Impression: Low back pain; Pain in right iw knee. Condition is Stable. Forms are Medication Reconciliation Form, Thank You Letter, Antibiotic Education, Prescription Opioid Use. Follow up: Dr. Edwardo Kyle; When: 5 - 6 days; Reason: Recheck today's complaints, Continuance of care, Re-evaluation by your physician. Problem is new. Symptoms have improved. jr8
--- NOTE | 2020-06-13 12:14 | ER ---
Nurse's Notes [facility] Name: Rober Pickett Age: 30 yrs Sex: Male : 1990 Arrival Date: 06/13/2020 Time: 10:44 Bed 20 Private MD: Diagnosis: Low back pain;Pain in right knee Presentation: 06/13 10:45 Chief complaint: Patient states: "I fell on both my knees about a week ago and both my aa5 knees are hurting but my right knee feels like it's giving out". Pt also c/o low back pain. 10:45 Coronavirus screen: Client denies travel out of the [place] in the last 14 days. At this aa5 time, the client does not indicate any symptoms associated with coronavirus-19. Ebola Screen: Patient negative for fever greater than or equal to 101.5 degrees Fahrenheit, and additional compatible Ebola Virus Disease symptoms. Initial Sepsis Screen: Does the patient meet any 2 criteria? No. Patient's initial sepsis screen is negative. Does the patient have a suspected source of infection? No. Patient's initial sepsis screen is negative. Risk Assessment: Do you want to hurt yourself or someone else? Patient reports no desire to harm self or others. Onset of symptoms was May 2020. 10:45 Method Of Arrival: Ambulatory aa5 10:45 Acuity: SHADY 4 aa5 Triage Assessment: 10:45 General: Appears in no apparent distress. comfortable, Behavior is calm, cooperative, bp appropriate for age. Pain: Complains of pain in right knee and left knee. EENT: No deficits noted. Neuro: No deficits noted. Cardiovascular: No deficits noted. Respiratory: No deficits noted. GI: No signs and/or symptoms were reported involving the gastrointestinal system. : No signs and/or symptoms were reported regarding the genitourinary system. Derm: No deficits noted. Musculoskeletal: Circulation, motion, and sensation intact. Range of motion: intact in all extremities, Reports pain in right knee and left knee. Historical: - Allergies: 10:48 No Known Allergies; aa5 - PMHx: 10:48 Hypertension; aa5 - PSHx: 10:48 None; aa5 - Immunization history:: Adult Immunizations unknown. - Social history:: Smoking status: Patient reports the use of cigarette tobacco products, 1-2 cigarettes a day . Screenin:00 Abuse screen: Denies threats or abuse. Denies injuries from another. Nutritional bp screening: No deficits noted. Tuberculosis screening: No symptoms or risk factors identified. Fall Risk None identified. Assessment: 11:05 General: SEE TRIAGE NOTE. bp 11:49 Reassessment: Patient appears in no apparent distress at this time. Patient and/or bp family updated on plan of care and expected duration. Pain level reassessed. Patient is alert, oriented x 3, equal unlabored respirations, skin warm/dry/pink. PT RETURNED FROM RADIOLOGY. 12:33 Reassessment: PT D/C HOME AMBULATORY, DX WITH MUSCULOSKELETAL PAIN. Neuro: Moves all bp extremities. Full function Gait is steady. Vital Signs: 10:45 BP 129 / 87; Pulse 62; Resp 18 S; Temp 97.2(O); Pulse Ox 96% on R/A; Weight 83.91 kg aa5 (R); Height 5 ft. 10 in. (177.80 cm) (R); Pain 6/10; 11:49 BP 117 / 80; Pulse 64; Resp 17; Pulse Ox 98% ; bp 12:33 BP 115 / 75; Pulse 63; Resp 16; Pulse Ox 98% ; bp 10:45 Body Mass Index 26.54 (83.91 kg, 177.80 cm) aa5 ED Course: 10:44 Patient arrived in ED. as 10:45 Arm band placed on Patient placed in an exam room, on a stretcher. aa5 10:55 Kenrick Roman [facility]. jr8 10:55 Kee Thornton MD is Attending Physician. jr8 10:57 Triage completed. aa5 11:00 Patient has correct armband on for positive identification. Bed in low position. Call bp light in reach. Side rails up X2. 11:21 Louie Erazo, RN is Primary Nurse. bp 11:30 XRAY Knee RIGHT 3 view In Process Unspecified. EDMS 11:30 XRAY Lumbar Spine (3 Views) In Process Unspecified. EDMS 12:13 Edwardo Kyle MD is Referral Physician. jr8 12:33 No provider procedures requiring assistance completed. Patient did not have IV access bp during this emergency room visit. Administered Medications: No medications were administered Outcome: 12:13 Discharge ordered by . jr8 12:33 Discharged to home ambulatory. bp 12:33 Condition: stable 12:33 Discharge instructions given to patient, Instructed on discharge instructions, follow up and referral plans. medication usage, Demonstrated understanding of instructions, follow-up care, medications, Prescriptions given X 2. 12:38 Patient left the ED. iw Signatures: Dispatcher [employer] Ernestine Hook Irene, RN RN iw Jessica Apple RN RN aa5 Kenrick Roman PA PA 8 Louie Erazo RN RN bp
[2020-06-13 12:48] VITALS: TEMP 97.2
[2020-06-13 12:49] VITALS: O2SAT 98
[2020-06-13 12:51] VITALS: BP 115/75
== END 2020-06-13 12:38 | disposition home or self-care (01) ==
LOC: ER 10:40
DX: M25.561 Pain in right knee (principal); I10 Essential (primary) hypertension; F17.210 Nicotine dependence, cigarettes, uncomplicated
CPT/HCPCS: 72100; 99283

== ENCOUNTER 2020-11-25 23:22 | Emergency (ER) | payer SELFPAY ==
[2020-11-25 23:46] LABS: Absolute Lymphocytes (CBC) 1.3 K/uL (0.7-4.9); Basophils % 0.4 % (0-1.3); Hematocrit 45.9 % (39.6-49.0); Lymphocytes % 13.5 % (15.3-44.8); MPV 9.6 fL (7.6-11.3)
[2020-11-25] MEDS ORDERED: ASPIRIN 81 MG CHEWABLE TABLET ONE (23:47)
[2020-11-25] MEDS ORDERED: ONDANSETRON 4 MG/2 ML VIAL ONE (23:48)
[2020-11-25] MEDS ORDERED: KETOROLAC 30 MG/ML INJ ONE (23:48)
[2020-11-25] MEDS ORDERED: NA CHLORIDE 0.9% 1,000 ML ONE (23:48)
[2020-11-25] MEDS ORDERED: METOPROLOL TAR 25 MG TAB ONE (23:48)
[2020-11-25 23:55] LABS: Protime INR 1.21
[2020-11-26 00:11] LABS: Urine Blood 1+ (Negative); Urine Glucose Negative (Negative); Urine Protein 1+ (Negative); Urine Specific Gravity >=1.030 (1.005-1.030)
[2020-11-26 00:31] LABS: ALT/SGPT 20 U/L (12-78); AST/SGOT 16 U/L (15-37); Albumin 4.7 g/dL (3.4-5.0); Alkaline Phosphatase 64 U/L (45-117); BUN Blood Urea Nitrogen 15 mg/dL (7-18); Bicarbonate 25 mmol/L (21-32); Bilirubin Direct 0.2 mg/dL (0-0.2); Bilirubin Total 0.6 mg/dL (0.2-1.0); Glucose Level 91 mg/dL (74-106); Magnesium 2.1 mg/dL (1.8-2.4); NT PRO-BNP 14 pg/mL (<125); Potassium 3.6 mmol/L (3.5-5.1); Protein, Total 8.3 g/dL (6.4-8.2); Sodium Level 142 mmol/L (136-145); Troponin (Emerg Dept Use Only) < 0.02 ng/mL (0.0-0.045)
[2020-11-26 00:49] LABS: Barbiturates NEGATIVE (NEGATIVE); Benzodiazepines NEGATIVE (NEGATIVE); Cocaine NEGATIVE (NEGATIVE); METHAMPHETAM NEGATIVE (NEGATIVE); Methadone NEGATIVE (NEGATIVE); Opiates NEGATIVE (NEGATIVE); Phencyclidine NEGATIVE (NEGATIVE); THC Cannibis POSITIVE (NEGATIVE)
[2020-11-26] MEDS ORDERED: MORPHINE 2 MG/ML SYR ONE (01:14)
--- NOTE | 2020-11-26 03:42 | ER ---
Nurse's Notes [facility] Name: Roebr Pickett Age: 30 yrs Sex: Male : 1990 Arrival Date: 11/25/2020 Time: 23:23 Bed 6 Private MD: Diagnosis: Chest pain, unspecified Presentation: 11/25 23:23 Chief complaint: EMS states: NAUSEA AND VOMITING STARTED IN THE MORNING, WITH SOB AND rv CHEST PAIN, 8/10. WORSE WITH MOVEMENT. Coronavirus screen: Client denies travel out of the [place] in the last 14 days. Ebola Screen: No symptoms or risks identified at this time. Initial Sepsis Screen: Does the patient meet any 2 criteria? No. Patient's initial sepsis screen is negative. Does the patient have a suspected source of infection? No. Patient's initial sepsis screen is negative. Risk Assessment: Do you want to hurt yourself or someone else? Patient reports no desire to harm self or others. Onset of symptoms was November 25, 2020. 23:23 Method Of Arrival: EMS: [facility] rv 23:23 Acuity: SHADY 3 rv Triage Assessment: 23:25 General: Appears comfortable, Behavior is calm, cooperative. Pain: Complains of pain in rv chest. Neuro: Level of Consciousness is awake, alert, obeys commands, Oriented to person, place, time, situation. Cardiovascular: Patient's skin is warm and dry. Rhythm is sinus rhythm. Respiratory: Airway is patent Respiratory effort is even, unlabored, Breath sounds are clear bilaterally. Derm: Skin is healthy with good turgor. Historical: - Allergies: 23:25 No Known Allergies; rv - PMHx: 23:25 Hypertension; rv - PSHx: 23:25 None; rv - Immunization history:: Adult Immunizations up to date. - Social history:: Smoking status: Patient reports the use of cigarette tobacco products, Patient uses street drugs, marijuana. Screenin:26 Abuse screen: Denies threats or abuse. Denies injuries from another. Nutritional rv screening: No deficits noted. Tuberculosis screening: No symptoms or risk factors identified. Fall Risk None identified. Assessment: 23:27 Pain: Pain does not radiate. Pain began 1 day ago. rv Vital Signs: 23:23 BP 157 / 90; Pulse 65; Resp 16; Temp 98.7; Pulse Ox 100% on R/A; Weight 85.28 kg; rv Height 5 ft. 10 in. (177.80 cm); Pain 6/10; 04 01:10 BP 107 / 66; Pulse 57; Resp 16; Pulse Ox 100% on R/A; rv 02:22 BP 105 / 67; Pulse 60; Resp 18; Pulse Ox 100% on R/A; mg2 03:45 BP 110 / 68; Pulse 61; Resp 18; Temp 98; Pulse Ox 100% on R/A; mg2 04 23:23 Body Mass Index 26.97 (85.28 kg, 177.80 cm) rv ED Course: 11/25 23:23 Patient arrived in ED. rv 23:23 Kee Grant PA is PHCP. cp 23:23 Vlad Gunn MD is Attending Physician. cp 23:25 Triage completed. rv 23:25 Arm band placed on right wrist. Patient placed in the treatment room, on a stretcher, rv Patient notified of wait time. 23:26 No provider procedures requiring assistance completed. Initial lab(s) drawn, by ED rv staff, sent to lab. EKG done, by ED staff, reviewed by Kee LOMBARDI. Inserted saline lock: 20 gauge in right antecubital area, using aseptic technique. Blood collected. BY MIKO GARCIA. Patient maintains SpO2 saturation greater than 95% on room air. 23:27 Nicola Alexandra, JOSE is Primary Nurse. rv 23:27 Patient has correct armband on for positive identification. campus monitor on. Pulse rv ox on. NIBP on. 23:53 XRAY Chest (1 view) In Process Unspecified. EDMS 11/26 03:45 IV discontinued, intact, bleeding controlled, No redness/swelling at site. Pressure mg2 dressing applied. Administered Medications: 11/25 23:39 Drug: Aspirin Chewable Tablet 324 mg Route: PO; rv 11/26 02:21 Follow up: Response: No adverse reaction mg2 11/25 23:39 Drug: Zofran (Ondansetron) 4 mg Route: IVP; Site: right antecubital; rv 11/26 02:21 Follow up: Response: No adverse reaction mg2 11/25 23:39 Drug: TORadol - Ketorolac 15 mg Route: IVP; Site: right antecubital; rv 11/26 02:21 Follow up: Response: No adverse reaction mg2 11/25 23:39 Drug: Metoprolol 25 mg Route: PO; rv 11/26 02:20 Follow up: Response: No adverse reaction mg2 11/25 23:40 Drug: NS 0.9% 1000 ml Route: IV; Rate: 1 bolus; Site: right antecubital; rv 11/26 02:22 Follow up: Response: No adverse reaction; IV Status: Completed infusion; IV Intake: mg2 1000ml 01:06 Drug: morphine 2 mg Route: IVP; Site: right antecubital; rv 02:21 Follow up: Response: No adverse reaction mg2 Intake: 02:22 IV: 1000ml; Total: 1000ml. mg2 Outcome: 03:41 Discharge ordered by MD. deleon 03:46 Discharged to Law Enforcement mg2 03:46 Condition: stable 03:46 Discharge instructions given to patient, police, Instructed on discharge instructions, follow up and referral plans. Demonstrated understanding of instructions, follow-up care. 03:46 Patient left the ED. mg2 Signatures: Dispatcher [employer] EDMS Kee Grant PA PA cp Gardose, Michele, RN RN mg2 Nicola Alexandra RN RN Vlad Otto MD MD [id number]
--- NOTE | 2020-11-26 03:42 | EDPHYS ---
Physician Documentation [facility] Name: Rober Pickett Age: 30 yrs Sex: Male : 1990 Arrival Date: 11/25/2020 Time: 23:23 Bed 6 Private MD: ED Physician Vlad Gunn HPI: 11/25 23:25 This 30 yrs old Black Male presents to ER via EMS with complaints of Chest Pain. cp 23:25 The patient or guardian reports chest pain that is located primarily in the anterior cp chest wall. 23:25 The pain does not radiate. Associated signs and symptoms: Pertinent positives: cp headache, nausea, vomiting, Pertinent negatives: abdominal pain, lower extremity pain, lower extremity swelling, shortness of breath. Historical: - Allergies: 23:25 No Known Allergies; rv - PMHx: 23:25 Hypertension; rv - PSHx: 23:25 None; rv - Immunization history:: Adult Immunizations up to date. - Social history:: Smoking status: Patient reports the use of cigarette tobacco products, Patient uses street drugs, marijuana. ROS: 23:25 Cardiovascular: Positive for chest pain, Negative for edema, palpitations. cp 23:25 Constitutional: Negative for body aches, chills, fever, poor PO intake. cp Exam: 23:26 ECG was reviewed by the Attending Physician. cp 23:30 Constitutional: The patient appears in no acute distress, alert, awake, cp non-diaphoretic, non-toxic, well developed, well nourished. 23:30 Head/Face: Normocephalic, atraumatic. cp 23:30 Eyes: Periorbital structures: appear normal, Conjunctiva: normal, no exudate, no cp injection, Sclera: no appreciated abnormality, Lids and lashes: appear normal, bilaterally. 23:30 ENT: External ear(s): are unremarkable, Nose: is normal, Posterior pharynx: Airway: no cp evidence of obstruction, patent. 23:30 Chest/axilla: Inspection: normal, Palpation: is normal, no crepitus, no tenderness. 23:30 Cardiovascular: Rate: normal, Rhythm: regular, Heart sounds: murmur, not appreciated, Edema: is not appreciated, JVD: is not appreciated. 23:30 Respiratory: the patient does not display signs of respiratory distress, Respirations: normal, no use of accessory muscles, no retractions, labored breathing, is not present, accessory muscle usage, is absent, Breath sounds: are clear throughout, no decreased breath sounds, no stridor, no wheezing. 23:30 Abdomen/GI: Inspection: abdomen appears normal, Palpation: abdomen is soft and non-tender, in all quadrants. 23:30 Back: pain, is absent, ROM is normal. 23:30 Neuro: Orientation: to person, place \T\ time. Mentation: is normal, Motor: moves all fours, strength is normal. Vital Signs: 23:23 BP 157 / 90; Pulse 65; Resp 16; Temp 98.7; Pulse Ox 100% on R/A; Weight 85.28 kg; rv Height 5 ft. 10 in. (177.80 cm); Pain 01/26; 11/26 01:10 BP 107 / 66; Pulse 57; Resp 16; Pulse Ox 100% on R/A; rv 02:22 BP 105 / 67; Pulse 60; Resp 18; Pulse Ox 100% on R/A; mg2 03:45 BP 110 / 68; Pulse 61; Resp 18; Temp 98; Pulse Ox 100% on R/A; mg2 11/25 23:23 Body Mass Index 26.97 (85.28 kg, 177.80 cm) rv MDM: 11/25 23:25 Patient medically screened. cp 23:50 Differential diagnosis: abnormal EKG, acute myocardial infarction, acute pericarditis, cp chest wall pain, pleurisy, pneumonia, pneumothorax, pulmonary embolus, stable angina, unstable angina. 11/26 03:39 HEART Score: History: Slightly Suspicious (0), ECG: Normal (0), Age: < or = 45 years mh7 (0), Risk Factors: 1 or 2 risk factors (1), [Hypertension] Troponin: < or = 1 x Normal Limit (0), Total Score = 1. Data reviewed: vital signs, nurses notes, lab test result(s), cardiac enzymes, CBC, electrolytes, urine drug screen, EKG, radiologic studies, plain films. Data interpreted: Pulse oximetry: on room air is 100 %. Interpretation: normal. Counseling: I had a detailed discussion with the patient and/or guardian regarding: the historical points, exam findings, and any diagnostic results supporting the discharge/admit diagnosis, lab results, radiology results, the need for outpatient follow up, to return to the emergency department if symptoms worsen or persist or if there are any questions or concerns that arise at home. Response to treatment: the patient's symptoms have resolved after treatment, the patient's blood pressure is in an acceptable range, mental status has returned to baseline, the patient no longer shows bradycardia, the patient is not short of breath, the patient is not tachycardic, the patient's pain is gone, the patient's temperature has normalized. 11/25 23:24 Order name: Basic Metabolic Panel cp 11/25 23:24 Order name: CBC with Diff cp 11/25 23:24 Order name: LFT's cp 11/25 23:24 Order name: Magnesium cp 11/25 23:24 Order name: NT PRO-BNP cp 11/25 23:24 Order name: PT-INR cp 11/25 23:24 Order name: Troponin (emerg Dept Use Only); Complete Time: 00:33 cp 11/25 23:24 Order name: UDS; Complete Time: 01:30 cp 11/25 23:26 Order name: Basic Metabolic Panel; Complete Time: 00:33 EDMS 04 00:33 Interpretation: Normal except: CL 109; GFR 78. cp 11/25 23:26 Order name: CBC with Automated Diff; Complete Time: 00:33 EDMS 0410 00:34 Interpretation: Normal except: OWEN% 75.8; LYM% 13.5. cp 11/25 23:26 Order name: Liver (Hepatic) Function; Complete Time: 00:33 EDMS 11/25 23:26 Order name: Magnesium; Complete Time: 00:33 EDMS 11/25 23:26 Order name: NT PRO-BNP; Complete Time: 00:33 EDMS 11/25 23:26 Order name: Protime (+INR); Complete Time: 00:33 EDMS 11/25 23:24 Order name: XRAY Chest (1 view) cp 11/25 23:24 Order name: EKG; Complete Time: 23:26 cp 11/25 23:24 Order name: Cardiac monitoring; Complete Time: 23:37 cp 11/25 23:24 Order name: EKG - Nurse/Tech; Complete Time: 23:37 cp 11/25 23:24 Order name: IV Saline Lock; Complete Time: 23:37 cp 11/25 23:24 Order name: Labs collected and sent; Complete Time: 23:37 cp 11/26 00:12 Order name: Urine Dipstick-Ancillary; Complete Time: 00:33 EDMS 11/26 00:34 Interpretation: Normal except: UKET 2+; UBLD 1+; UPROT 1+. cp 11/26 00:21 Order name: SARS-COV-2 RT PCR; Complete Time: 00:33 EDMS 11/26 01:31 Order name: Troponin I: redraw at 0300; Complete Time: 03:37 cp 11/25 23:24 Order name: O2 Per Protocol; Complete Time: 23:37 cp 11/25 23:24 Order name: O2 Sat Monitoring; Complete Time: 23:37 cp EC/09 23:26 Rate is 61 beats/min. Rhythm is regular. DE interval is normal. QRS interval is normal. cp QT interval is normal. T waves are Inverted in lead aVR. Interpreted by me. Reviewed by me. Administered Medications: 23:39 Drug: Aspirin Chewable Tablet 324 mg Route: PO; rv 11/26 02:21 Follow up: Response: No adverse reaction mg2 11/25 23:39 Drug: Zofran (Ondansetron) 4 mg Route: IVP; Site: right antecubital; rv 11/26 02:21 Follow up: Response: No adverse reaction mg2 11/25 23:39 Drug: TORadol - Ketorolac 15 mg Route: IVP; Site: right antecubital; rv 11/26 02:21 Follow up: Response: No adverse reaction mg2 11/25 23:39 Drug: Metoprolol 25 mg Route: PO; rv 11/26 02:20 Follow up: Response: No adverse reaction mg2 11/25 23:40 Drug: NS 0.9% 1000 ml Route: IV; Rate: 1 bolus; Site: right antecubital; rv 11/26 02:22 Follow up: Response: No adverse reaction; IV Status: Completed infusion; IV Intake: mg2 1000ml 01:06 Drug: morphine 2 mg Route: IVP; Site: right antecubital; rv 02:21 Follow up: Response: No adverse reaction mg2 Disposition: 05:37 Co-signature as Attending Physician, Vlad Gunn MD. mh7 Disposition: 11/26/20 03:41 Discharged to Home. Impression: Chest pain, unspecified. - Condition is Stable. - Discharge Instructions: Nonspecific Chest Pain, [id number]. - Medication Reconciliation Form, Thank You Letter, Antibiotic Education, Prescription Opioid Use form. - Follow up: Private Physician; When: 1 - 2 days; Reason: Worsening of condition, Recheck today's complaints, Continuance of care, Re-evaluation by your physician. - Problem is new. - Symptoms are resolved. Signatures: Dispatcher [employer] [facility] Kee Grant PA PA cp Man Mack, RN RN mg2 Nicola Alexandra RN RN rv Vlad Gunn MD MD mh7 Corrections: (The following items were deleted from the chart) 11/25 23:45 23:29 CORONAVIRUS+MR.LAB.BRZ ordered. [facility] 11/26 00:07 11/25 23:25 Associated signs and symptoms: Pertinent positives: headache, cp cp 11/26 03:46 03:41 11/26/2020 03:41 Discharged to Home. Impression: Chest pain, unspecified. mg2 Condition is Stable. Forms are Medication Reconciliation Form, Thank You Letter, Antibiotic Education, Prescription Opioid Use. Follow up: Private Physician; When: 1 - 2 days; Reason: Worsening of condition, Recheck today's complaints, Continuance of care, Re-evaluation by your physician. Problem is new. Symptoms are resolved. mh7
--- NOTE | 2020-11-26 10:15 | EKG ---
Test Date: 2020-11-25 Test Time: 23:22:26 Parking Analyst: RR MEASUREMENT RESULTS: Intervals: Rate: 61 FL: 130 QRSD: 86 QT: 412 QTc: 414 Webster: P: 45 FL: 130 QRS: 79 T: 54 INTERPRETIVE STATEMENTS: Normal sinus rhythm Normal ECG Compared to ECG 05/29/2013 15:39:22 Sinus bradycardia no longer present Electronically Signed On 11-26-20 10:15:05 CDT by Rich Sauer
--- NOTE | 2020-11-26 11:29 | RAD REPORT ---
EXAM DESCRIPTION: RAD - Chest Single View - 11/25/2020 11:53 pm CLINICAL HISTORY: CHEST PAIN COMPARISON: Two view chest May 2013 TECHNIQUE: AP portable chest image was obtained 11/25/2020 11:53 pm . FINDINGS: Lungs are clear. Heart and vasculature are normal. No measurable pleural effusion and no p neumothorax. No acute bony abnormality seen. No acute aortic findings suspected. IMPRESSION: No acute cardiopulmonary process. No significant change from comparison study.
[2020-11-26 14:57] VITALS: O2SAT 100
[2020-11-26 15:01] VITALS: BP 110/68; TEMP 98
== END 2020-11-26 03:46 | disposition home or self-care (01) ==
LOC: ER 23:22
DX: R07.9 Chest pain, unspecified (principal); Z20.822 Contact with and (suspected) exposure to COVID-19; F17.210 Nicotine dependence, cigarettes, uncomplicated; I10 Essential (primary) hypertension
CPT/HCPCS: 36415; 71045; 80048; 80076; 80307; 81003; 83735; 83880; 84484; 85025; 85610; 93005; 96361; 96374; 96375; 99285; J2270; J2405; J7030; U0003

== ENCOUNTER 2022-02-22 08:00 | Emergency (ER) | payer SELFPAY ==
[2022-02-22] MEDS ORDERED: IBUPROFEN 200 MG TAB PO ONE (09:27)
--- NOTE | 2022-02-22 10:23 | EDPHYS ---
Physician Documentation [facility] Name: Rober Pickett Age: 31 yrs Sex: Male : 1990 Arrival Date: 02/22/2022 Time: 08:02 Bed Waiting Private MD: ED Physician Leonid Mi HPI: 02/22 10:17 This 31 yrs old Black Male presents to ER via Ambulatory with complaints of Sore Throat.ms3 10:17 The patient presents with sore throat. The patient describes throat pain as raw, ms3 scratchy. Onset: The symptoms/episode began/occurred acutely, 2 day(s) ago. Severity of symptoms: At their worst the symptoms were moderate, in the emergency department the symptoms are unchanged. Modifying factors: The symptoms are alleviated by nothing, the symptoms are aggravated by swallowing. Associated signs and symptoms: Pertinent positives: Sore throat Pertinent negatives chest pain, shortness of breath. Historical: - Allergies: 08:29 No Known Allergies; ss - Home Meds: 08:29 lisinopril 10 mg Oral tab 1 tab once daily [Active]; ss - PMHx: 08:29 Hypertension; ss - PSHx: 08:29 None; ss - Immunization history:: Client reports having NOT received the Covid vaccine. - Social history:: Smoking status: Patient denies any tobacco usage or history of. ROS: 10:17 Cardiovascular: Negative for chest pain, and palpitations. ms3 10:17 Skin: Negative for injury, rash, and discoloration, Neuro: Negative for headache, weakness, numbness, tingling. Psych: Negative for depression, anxiety, suicide ideation, homicidal ideation, and hallucinations. 10:17 Constitutional: Positive for chills. 10:17 ENT: Positive for sore throat. 10:17 Respiratory: Positive for cough. 10:17 All other systems are negative. Exam: 10:17 Constitutional: This is a well developed, well nourished patient who is awake, alert, ms3 and in no acute distress. Head/Face: Normocephalic, atraumatic. 10:17 ENT: Mouth: Oral mucosa: moist, Posterior pharynx: Tonsils: are normal in appearance, Uvula: midline, non-edematous, no erythema, Erythema of posterior pharynx. L > R pain. Vital Signs: 08:27 Pulse 89; Resp 15; Pulse Ox 100% on R/A; Weight 81.65 kg; Height 5 ft. 9 in. (175.26 ss cm); Pain 6/10; 08:27 Temp 98.9(O); ss 09:08 BP 128 / 82; Pulse 84; ss 08:27 Body Mass Index 26.58 (81.65 kg, 175.26 cm) ss MDM: 08:05 Patient medically screened. ms3 10:17 Differential diagnosis: pharyngitis, upper respiratory infection, viral syndrome COVID. ms3 Data reviewed: vital signs, nurses notes, lab test result(s), and as a result, I will discharge patient. Counseling: I had a detailed discussion with the patient and/or guardian regarding: the historical points, exam findings, and any diagnostic results supporting the discharge/admit diagnosis, lab results, the need for outpatient follow up, to return to the emergency department if symptoms worsen or persist or if there are any questions or concerns that arise at home. ED course: Patient states he would like to leave prior to completion of COVID results. Discussed strep positive, physical exam findings with patient. Patient to follow-up with primary care physician in 2 to 3 days. Patient understands and agrees with plan. All questions were answered. Return precautions discussed include worsening symptoms, or any other concerns. On reevaluation patient is alert and oriented x4, in no apparent distress, nontoxic-appearing, speaking full sentences, ambulatory in emergency department, tolerating po. 02/22 08:16 Order name: Rapid Strep ms3 02/22 08:18 Order name: Group A Streptococcus Rapid Sc; Complete Time: 10:15 EDMS 02/22 08:41 Order name: COVID-19 SARS RT PCR (Document "Date of Onset" if Symptomatic) ss Administered Medications: 09:22 Drug: Ibuprofen 600 mg Route: PO; ss 10:36 Follow up: Response: No adverse reaction; Pain is decreased ss Disposition Summary: 02/22/22 10:22 Discharge Ordered Location: Home ms3 Condition: Stable ms3 Diagnosis - Streptococcal pharyngitis ms3 - Pain in throat ms3 - Chills (without fever) ms3 Followup: ms3 - With: Cuauhtemoc Roman, DO - When: 2 - 3 days - Reason: Recheck today's complaints Discharge Instructions: - Discharge Summary Sheet ms3 - Pharyngitis ms3 - Strep Throat, Adult, [id number] ms3 Forms: - Work release form ss - Family Work Release ss - Medication Reconciliation Form ms3 - Thank You Letter ms3 - Antibiotic Education ms3 - Prescription Opioid Use ms3 Prescriptions: - Amoxicillin 500 mg Oral Capsule - take 1 capsule by ORAL route every 12 hours for 7 days; 14 tablet; Refills: 0, ms3 Product Selection Permitted Signatures: Dispatcher [employer] Rosemarie Cole, JOSE RN ss Leonid Mi, DO ms3
--- NOTE | 2022-02-22 10:23 | ER ---
Nurse's Notes [facility] Name: Rober Pickett Age: 31 yrs Sex: Male : 1990 Arrival Date: 02/22/2022 Time: 08:02 Bed Waiting [facility] MD: Diagnosis: Streptococcal pharyngitis;Pain in throat;Chills (without fever) Presentation: 02/22 08:27 Chief complaint: Patient states: Sore throat x2 days and fever that began last night. ss Coronavirus screen: Client denies travel out of the [place] in the last 14 days. Ebola Screen: Patient denies exposure to infectious person. Patient denies travel to an Ebola-affected area in the 21 days before illness onset. Initial Sepsis Screen: Does the patient meet any 2 criteria? No. Patient's initial sepsis screen is negative. Does the patient have a suspected source of infection? No. Patient's initial sepsis screen is negative. Risk Assessment: Do you want to hurt yourself or someone else? Patient reports no desire to harm self or others. Onset of symptoms was February 20, 2022. 08:27 Method Of Arrival: Ambulatory ss 08:27 Acuity: SHADY 4 ss Historical: - Allergies: 08:29 No Known Allergies; ss - Home Meds: 08:29 lisinopril 10 mg Oral tab 1 tab once daily [Active]; ss - PMHx: 08:29 Hypertension; ss - PSHx: 08:29 None; ss - Immunization history:: Client reports having NOT received the Covid vaccine. - Social history:: Smoking status: Patient denies any tobacco usage or history of. Screenin:34 Abuse screen: Denies threats or abuse. Denies injuries from another. Nutritional ss screening: No deficits noted. Tuberculosis screening: Never had TB. Fall Risk None identified. Assessment: 10:34 Reassessment: Patient appears in no apparent distress at this time. Patient and/or ss family updated on plan of care and expected duration. Pain level reassessed. Patient is alert, oriented x 3, equal unlabored respirations, skin warm/dry/pink. Reassessment: Patient states feeling better. Neuro: Level of Consciousness is awake, alert, obeys commands. Vital Signs: 08:27 Pulse 89; Resp 15; Pulse Ox 100% on R/A; Weight 81.65 kg; Height 5 ft. 9 in. (175.26 ss cm); Pain 6/10; 08:27 Temp 98.9(O); ss 09:08 BP 128 / 82; Pulse 84; ss 08:27 Body Mass Index 26.58 (81.65 kg, 175.26 cm) ED Course: 08:02 Patient arrived in ED. rg4 08:06 Leonid Mi DO is Attending Physician. ms3 08:28 Triage completed. ss 08:29 Arm band placed on right wrist. ss 10:22 Cuauhtmeoc Roman DO is Referral Physician. ms3 10:34 Patient has correct armband on for positive identification. Bed in low position. Call ss light in reach. 10:34 No provider procedures requiring assistance completed. Patient did not have IV access ss during this emergency room visit. Administered Medications: 09:22 Drug: Ibuprofen 600 mg Route: PO; ss 10:36 Follow up: Response: No adverse reaction; Pain is decreased ss Medication: 10:34 VIS not applicable for this client. ss Outcome: 10:22 Discharge ordered by . ms3 10:34 Discharged to home ambulatory, with family. ss 10:34 Condition: good 10:34 Discharge instructions given to patient, Instructed on discharge instructions, follow up and referral plans. Demonstrated understanding of instructions, follow-up care, medications, Prescriptions given X 1. 10:36 Patient left the ED. Signatures: Rosemarie Humphreys, RN RN Mihaela Rangel rg4 Leonid Mi DO DO ms3
[2022-02-22 10:44] VITALS: TEMP 98.9; O2SAT 100
[2022-02-22 10:46] VITALS: BP 128/82
== END 2022-02-22 10:36 | disposition home or self-care (01) ==
LOC: ER 08:00
DX: U07.1 COVID-19 (principal); J02.0 Streptococcal pharyngitis; R68.83 Chills (without fever); I10 Essential (primary) hypertension
CPT/HCPCS: 87081; U0003

== ENCOUNTER 2022-05-19 15:05 | Emergency (ER) | payer SELFPAY ==
--- OUTSIDE RECORDS SUMMARY | 2022-05-19 15:08 | XMS REPORT | Continuity of Care Document ---
:1990 Author Organization [facility] t Address [address] [place] [address] Dr. Gonzalez [address] [place] [id number] Care Team Providers Name Role Phone Unavailable Unavailable Unavailable Problems This patient has no known problems. Allergies, Adverse Reactions, Alerts This patient has no known allergies or adverse reactions. Medications This patient has no known medications. Procedures This patient has no known procedures. Results This patient has no known results.
--- NOTE | 2022-05-19 15:37 | ER ---
Nurse's Notes [facility] Name: Rober Pickett Age: 32 yrs Sex: Male : 1990 Arrival Date: 05/19/2022 Time: 15:07 Bed 5 Private MD: Diagnosis: Chest pain, unspecified;Anxiety Presentation: 05/19 15:05 Chief complaint: EMS states: Pt was left in back of vehicle for approximately 10-15 mb9 minutes without air conditioning. Pt developed left sided chest pain that radiates to back. Pt states pain is 2/10. Coronavirus screen: Vaccine status: Patient reports being unvaccinated. Ebola Screen: Patient denies travel to an Ebola-affected area in the 21 days before illness onset. 15:05 Method Of Arrival: EMS: [facility] mb9 15:05 Initial Sepsis Screen: Does the patient meet any 2 criteria? No. Patient's initial mb9 sepsis screen is negative. Does the patient have a suspected source of infection? No. Patient's initial sepsis screen is negative. Risk Assessment: Do you want to hurt yourself or someone else? Patient reports no desire to harm self or others. Onset of symptoms was May 19, 2022. 15:05 Acuity: SHADY 3 mb9 Triage Assessment: 15:05 General: Appears in no apparent distress. Behavior is calm, cooperative, appropriate mb9 for age. Pain: Complains of pain in Left of chest, posterior chest and back. 15:05 Cardiovascular: Reports chest pain, Heart tones S1 S2 present Rhythm is regular Chest mb9 pain is described as Pain is 2 out of 10 on a pain scale. quality is pressure, tightness is located in left posterior chest wall radiates to left back began 1 hour prior to arrival episodes are intermittent. Historical: - Allergies: 15:20 Acetaminophen; jl7 - Home Meds: 15:20 lisinopril 10 mg Oral tab 1 tab once daily [Active]; jl7 - PMHx: 15:20 Hypertension; jl7 - Immunization history:: Adult Immunizations unknown. - Social history:: Smoking status: unknown. Vital Signs: 15:05 BP 128 / 82; Pulse 61; Resp 16; Temp 99.3(O); Pulse Ox 100% on R/A; Weight 88.45 kg mb9 (R); Height 5 ft. 9 in. (175.26 cm) (R); Pain 2/10; 15:05 Body Mass Index 28.80 (88.45 kg, 175.26 cm) mb9 ED Course: 15:07 Patient arrived in ED. eb 15:08 Joyce Che MD is Attending Physician. sd2 15:13 EKG done, by ED staff, reviewed by Joyce Che MD. em1 15:14 Toshia Tadeo, RN is Primary Nurse. mb9 15:20 Triage completed. mb9 15:20 Arm band placed on right wrist. jl7 Administered Medications: No medications were administered Outcome: 15:36 Discharge ordered by . sd2 15:59 Patient left the ED. jl7 Signatures: Lazaro Clark em1 Jeanna Lopez, RN RN jl7 Rubina Tucker Stephanie, MD MD sd2 Toshia Tadeo, RN RN mb9
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
[2022-05-19 16:28] VITALS: BP 128/82; TEMP 99.3; O2SAT 100
--- NOTE | 2022-05-21 14:15 | EKG ---
Test Date: 2022-05-19 Test Time: 15:07:10 Multiple Pressure Riveter Operator: JAYLON MEASUREMENT RESULTS: Intervals: Rate: 57 HI: 134 QRSD: 86 QT: 398 QTc: 387 [place]: P: HI: 134 QRS: 161 T: 184 INTERPRETIVE STATEMENTS: Sinus bradycardia Left posterior fascicular block Inferior infarct, age undetermined Abnormal ECG Compared to ECG 11/25/2020 23:22:26 Left posterior fascicular block now present Myocardial infarct finding now present Sinus rhythm no longer present Electronically Signed On 05-21-22 14:13:32 CDT by Flaco [place]
== END 2022-05-19 15:59 | disposition home or self-care (01) ==
LOC: ER 15:05
DX: R07.9 Chest pain, unspecified (principal); F41.9 Anxiety disorder, unspecified; I10 Essential (primary) hypertension; Z88.6 Allergy status to analgesic agent
CPT/HCPCS: 93005; 99283

== ENCOUNTER 2022-08-16 08:18 | Emergency (ER) | payer SELFPAY ==
--- OUTSIDE RECORDS SUMMARY | 2022-08-16 08:20 | XMS REPORT | Continuity of Care Document ---
:1990 Author Organization [facility] t Address [address] [place] [address] Dr. Gonzalez [address] [place] [id number] Care Team Providers Name Role Phone Unavailable Unavailable Unavailable Problems This patient has no known problems. Allergies, Adverse Reactions, Alerts This patient has no known allergies or adverse reactions. Medications This patient has no known medications. Procedures This patient has no known procedures. Results This patient has no known results.
[2022-08-16] MEDS ORDERED: IBUPROFEN 400 MG TAB ONE (08:37)
[2022-08-16] MEDS ORDERED: HYDROCODONE/APAP 7.5/325 MG TAB ONE (08:37)
[2022-08-16] MEDS ORDERED: AMOX/K CLAV 875 MG TAB ONE (08:38)
--- NOTE | 2022-08-16 08:41 | ER ---
Nurse's Notes [facility] Name: Rober Pickett Age: 32 yrs Sex: Male : 1990 Arrival Date: 08/16/2022 Time: 08:21 Bed IW3 Private MD: Diagnosis: Disorder of teeth and supporting structures, unspecified Presentation: 08/16 08:27 Chief complaint: Patient states: R EAR PAIN RADIATING TO R MANDIBLE x2 DAYS. bp Coronavirus screen: At this time, the client does not indicate any symptoms associated with coronavirus-19. Ebola Screen: No symptoms or risks identified at this time. Initial Sepsis Screen: Does the patient meet any 2 criteria? No. Patient's initial sepsis screen is negative. Does the patient have a suspected source of infection? No. Patient's initial sepsis screen is negative. Risk Assessment: Do you want to hurt yourself or someone else? Patient reports no desire to harm self or others. Onset of symptoms was August 14, 2022. 08:27 Method Of Arrival: Ambulatory bp 08:27 Acuity: SHADY 4 bp Triage Assessment: 08:29 General: Appears uncomfortable, Behavior is calm, cooperative, appropriate for age. bp Pain: Complains of pain in lower right first molar. EENT: Ear canal clear on right ear and left ear. Neuro: No deficits noted. Cardiovascular: No deficits noted. Respiratory: No deficits noted. GI: No signs and/or symptoms were reported involving the gastrointestinal system. : No signs and/or symptoms were reported regarding the genitourinary system. Derm: No deficits noted. Musculoskeletal: No deficits noted. Historical: - Allergies: 08:31 No Known Allergies; bp - Home Meds: 08:29 lisinopril 10 mg Oral tab 1 tab once daily [Active]; bp - PMHx: 08:29 Hypertension; bp - Immunization history:: Adult Immunizations up to date. - Social history:: Smoking status: unknown. Screenin:45 [facility] ED Fall Risk Assessment (Adult) History of falling in the last 3 months, bp including since admission No falls in past 3 months (0 pts). Abuse screen: Denies threats or abuse. Denies injuries from another. Nutritional screening: No deficits noted. Tuberculosis screening: No symptoms or risk factors identified. Assessment: 08:45 Reassessment: PT DC HOME. bp Vital Signs: 08:27 BP 158 / 101; Pulse 79; Resp 16; Temp 98.2; Pulse Ox 100% ; Weight 89.81 kg; Height 5 bp ft. 9 in. (175.26 cm); 08:27 Body Mass Index 29.24 (89.81 kg, 175.26 cm) bp ED Course: 08:21 Patient arrived in ED. am2 08:21 Kee Grant PA is PHCP. cp 08:21 Joyce Che MD is Attending Physician. cp 08:29 Triage completed. bp 08:29 Arm band placed on. bp 08:45 Louie Erazo, RN is Primary Nurse. bp 08:45 Patient has correct armband on for positive identification. Adult w/ patient. bp 08:45 No provider procedures requiring assistance completed. Patient did not have IV access bp during this emergency room visit. Administered Medications: 08:38 Drug: Augmentin (Amoxicillin-Clavulanate) 875 mg Route: PO; bp 08:46 Follow up: Response: No adverse reaction bp 08:38 Drug: Ibuprofen 800 mg Route: PO; bp 08:46 Follow up: Response: No adverse reaction bp 08:38 Drug: Hydrocodone-Acetaminophen (7.5 mg-325 mg) 1 tabs Route: PO; bp 08:46 Follow up: Response: No adverse reaction bp Medication: 08:45 VIS not applicable for this client. bp Outcome: 08:40 Discharge ordered by MD. cp 08:45 Discharged to home ambulatory, with family. bp 08:45 Condition: stable 08:45 Discharge instructions given to patient, Instructed on discharge instructions, follow up and referral plans. medication usage, Demonstrated understanding of instructions, follow-up care, medications, Prescriptions given X 2. 08:47 Patient left the ED. bp Signatures: Kee Grant PA PA cp Lamar Christian am2 Louie Erazo, RN RN bp Corrections: (The following items were deleted from the chart) 08:32 08:29 Allergies: ACETAMINOPHEN; bp bp
--- NOTE | 2022-08-16 08:41 | EDPHYS ---
Physician Documentation [facility] Name: Rober Pickett Age: 32 yrs Sex: Male : 1990 Arrival Date: 08/16/2022 Time: 08:21 Bed IW3 Private MD: ED Physician Joyce Che HPI: 08/16 08:32 This 32 yrs old Black Male presents to ER via Ambulatory with complaints of Ear Pain, cp Toothache. 08:33 The patient presents with pain. The problem is located in the lower right first molar. cp Onset: The symptoms/episode began/occurred 2 day(s) ago. Duration: The symptoms are continuous, and are steadily getting worse. Associated signs and symptoms: Pertinent positives: right jaw and right ear pain, Pertinent negatives: cough, fever, lightheadedness, rhinorrhea, sinus trouble, sore throat. Historical: - Allergies: 08:31 No Known Allergies; bp - Home Meds: 08:29 lisinopril 10 mg Oral tab 1 tab once daily [Active]; bp - PMHx: 08:29 Hypertension; bp - Immunization history:: Adult Immunizations up to date. - Social history:: Smoking status: unknown. ROS: 08:35 Eyes: Negative for injury, pain, redness, and discharge. cp 08:35 Constitutional: Negative for body aches, chills, fever, poor PO intake. 08:35 ENT: Positive for dental pain, ear pain, Negative for drainage from ear(s), sinus congestion, sinus pain, sore throat, difficulty swallowing, difficulty handling secretions. 08:35 Cardiovascular: Negative for chest pain, palpitations. 08:35 Respiratory: Negative for cough, shortness of breath, wheezing. 08:35 Abdomen/GI: Negative for abdominal pain, nausea, vomiting, and diarrhea. 08:35 Skin: Negative for cellulitis, rash. 08:35 Neuro: Negative for altered mental status, dizziness, headache, weakness. 08:35 All other systems are negative. Exam: 08:37 Head/Face: Normocephalic, atraumatic. cp 08:37 Constitutional: The patient appears in no acute distress, alert, awake, non-toxic, well developed, well nourished, uncomfortable. 08:37 Eyes: Periorbital structures: appear normal, Conjunctiva: normal, no exudate, no injection, Lids and lashes: appear normal, bilaterally. 08:37 ENT: External ear(s): are unremarkable, Ear canal(s): are normal, clear, TM's: dullness, bilaterally, Nose: is normal, Mouth: Lips: moist, Oral mucosa: pink and intact, moist, Tongue: is normal, abscess, is not appreciated, Posterior pharynx: is normal, airway is patent, no erythema, no exudate, Dental exam: abscess, is not appreciated, dental caries, that is moderate, diffusely, fractured teeth are noted, specifically the lower right first molar (#30), gum swelling, that is mild, specifically in the right lower inner palate, pain, that is moderate, specifically in the lower right first molar (#30), Voice: is normal. 08:37 Neck: ROM/movement: is normal, is supple, without pain, no range of motions limitations, no meningismus, no nuchal rigidity, Lymph nodes: no appreciated lymphadenopathy. 08:37 Chest/axilla: Inspection: normal. 08:37 Cardiovascular: Rate: normal. 08:37 Respiratory: the patient does not display signs of respiratory distress, Respirations: normal, no use of accessory muscles, no retractions, labored breathing, is not present. Vital Signs: 08:27 BP 158 / 101; Pulse 79; Resp 16; Temp 98.2; Pulse Ox 100% ; Weight 89.81 kg; Height 5 bp ft. 9 in. (175.26 cm); 08:27 Body Mass Index 29.24 (89.81 kg, 175.26 cm) bp MDM: 08:35 Differential diagnosis: otitis media, otitis externa, cerumen impaction, dental caries, cp dental abscess. 08:40 Patient medically screened. cp 08:40 Data reviewed: vital signs, nurses notes. cp 08:40 Counseling: I had a detailed discussion with the patient and/or guardian regarding: the cp historical points, exam findings, and any diagnostic results supporting the discharge/admit diagnosis, the need for outpatient follow up, for definitive care, a dentist, to return to the emergency department if symptoms worsen or persist or if there are any questions or concerns that arise at home. Response to treatment: the patient's symptoms have mildly improved after treatment, and as a result, I will discharge patient. Administered Medications: 08:38 Drug: Augmentin (Amoxicillin-Clavulanate) 875 mg Route: PO; bp 08:46 Follow up: Response: No adverse reaction bp 08:38 Drug: Ibuprofen 800 mg Route: PO; bp 08:46 Follow up: Response: No adverse reaction bp 08:38 Drug: Hydrocodone-Acetaminophen (7.5 mg-325 mg) 1 tabs Route: PO; bp 08:46 Follow up: Response: No adverse reaction bp Disposition Summary: 08/16/22 08:40 Discharge Ordered Location: Home cp Problem: new cp Symptoms: have improved cp Condition: Stable cp Diagnosis - Disorder of teeth and supporting structures, unspecified cp Followup: cp - With: Private Physician - When: 2 - 3 days - Reason: Recheck today's complaints Discharge Instructions: - Discharge Summary Sheet cp - Dental Pain cp Forms: - Medication Reconciliation Form cp - Thank You Letter cp - Antibiotic Education cp - Prescription Opioid Use cp Prescriptions: - Amoxicillin 875 mg Oral Tablet - take 1 tablet by ORAL route every 12 hours for 10 days; 20 tablet; Refills: 0, cp Product Selection Permitted - Diclofenac Sodium 75 mg Oral Tablet Sustained Release - take 1 tablet by ORAL route 2 times per day; 30 tablet; Refills: 0, Product cp Selection Permitted Addendum: 08/20/2022 12:36 STAFF ATTESTATION STATEMENT: I was immediately available onsite in the emergency s d2 department for consultation in the care of this patient. I did not see or examine this patient. Joyce Che MD. Signatures: Kee Grant PA PA cp Peltier, Brian, RN RN Joyce Milligan MD MD sd2 Corrections: (The following items were deleted from the chart) 08/16 08:32 08:29 Allergies: ACETAMINOPHEN; bp bp
[2022-08-16 08:51] VITALS: BP 158/101; TEMP 98.2; O2SAT 100
== END 2022-08-16 08:47 | disposition home or self-care (01) ==
LOC: ER 08:18
DX: K08.89 Other specified disorders of teeth and supporting structures (principal); I10 Essential (primary) hypertension
CPT/HCPCS: 99283

== ENCOUNTER 2023-07-08 06:28 | Emergency (ER) | payer SELFPAY ==
--- NOTE | 2023-07-08 06:43 | EDPHYS ---
Physician Documentation [facility] Name: Rober Pickett Age: 33 yrs Sex: Male : 1990 Arrival Date: 07/08/2023 Time: 06:28 Bed 17 Private MD: ED Physician Sebastien Pedersne HPI: 07/08 06:45 This 33 yrs old Black Male presents to ER via Ambulatory with complaints of Toothache. ec2 06:45 Patient arrives today for evaluation of right lower dental pain. States that he has ec2 been experiencing pain since yesterday. States that he recently had this tooth evaluated and was recommended to have this tooth removed. Patient reports no fevers or chills, no facial swelling, no difficulty with swallowing. States he has been taking Tylenol and ibuprofen with minimal alleviation in his symptoms.. Historical: - Allergies: 06:40 No Known Allergies; as6 - PMHx: 06:40 Hypertension; as6 - PSHx: 06:40 None; as6 - Immunization history:: Adult Immunizations not up to date. - Social history:: Smoking status: Patient denies any tobacco usage or history of. Patient uses street drugs, marijuana. ROS: 06:45 Constitutional: as per hpi ec2 Exam: 06:45 Constitutional: GEN: NAD Head: atraumatic Eyes: EOMI Ears: External ears are normal. ec2 Mouth: Dental caries noted in the right lower molar, no erythema at the gumline, no overlying facial swelling, no submandibular swelling, no trismus CV: regular rate LUNGS: no respiratory distress ABD: non-distended SKIN: no evidence of rashes MSK: no evidence of trauma NEURO: moves all extremities equally Vital Signs: 06:38 BP 158 / 93; Pulse 58; Resp 18 S; Temp 97.9(TE); Pulse Ox 100% on R/A; Pain 10/10; as6 06:41 Weight 86.18 kg (R); Height 5 ft. 10 in. (R); as6 06:41 Body Mass Index 27.26 (86.18 kg, 177.8 cm) as6 06:38 Pain Scale: Adult as6 MDM: 06:36 Patient medically screened. ec2 06:45 Data reviewed: vital signs. ED course: Patient arrives today for evaluation of right ec2 lower dental pain. Examination remarkable for dental findings as noted above. We will give the patient [place], Toradol as well as Augmentin for antibiotic coverage. Will cover for dental infection, no evidence of dental abscess or submandibular abscess or facial abscess on physical examination. Accordingly will defer any CT imaging. Additionally patient without systemic symptoms to indicate obtaining lab work. Will discharge, instructed him he needs to follow-up for reevaluation with his dentist to discuss more prompt removal of his tooth. . Administered Medications: 06:57 Drug: [place] PO 10 mg-325 mg 1 tabs PO once Route: PO; jw7 06:58 Follow up: Response: No adverse reaction jw7 06:57 Drug: Ketorolac IM 30 mg IM once Route: IM; Site: right deltoid; jw7 06:57 Follow up: Response: No adverse reaction jw7 06:57 Drug: Amoxicillin-Clavulanate PO 875 mg PO once Route: PO; jw7 06:57 Follow up: Response: No adverse reaction jw7 Disposition Summary: 07/08/23 06:43 Discharge Ordered Condition: Stable ec2 Diagnosis - Dental caries, unspecified ec2 Followup: ec2 - With: Private Physician - When: Dentist - Reason: Recheck today's complaints, Continuance of care Discharge Instructions: - Discharge Summary Sheet ec2 - Dental Pain ec2 Forms: - Medication Reconciliation Form ec2 - Thank You Letter ec2 - Antibiotic Education ec2 - Prescription Opioid Use ec2 - Patient Portal Instructions ec2 - Leadership Thank You Letter ec2 Prescriptions: - acetaminophen-codeine 300-15 mg Oral tablet - take 1 tablet ORAL route 3 times per day as needed for pain; 10 tablet; ec2 Refills: 0, Product Selection Permitted - Augmentin 875-125 mg Oral Tablet - take 1 tablet ORAL route every 12 hours for 10 days; 20 tablet; Refills: 0, ec2 Product Selection Permitted Signatures: Boaz Adkins RN RN as6 Charissa Melvin RN RN jw7 Sebastien Pedersen MD MD ec2
--- NOTE | 2023-07-08 06:43 | ER ---
Nurse's Notes [facility] Name: Rober Pickett Age: 33 yrs Sex: Male : 1990 Arrival Date: 07/08/2023 Time: 06:28 Bed 17 Private MD: Diagnosis: Dental caries, unspecified Presentation: 07/08 06:38 Chief complaint: Spouse and/or significant other states: right lower dental pain. as6 Coronavirus screen: At this time, the client does not indicate any symptoms associated with coronavirus-19. Ebola Screen: No symptoms or risks identified at this time. Initial Sepsis Screen: Does the patient meet any 2 criteria? No. Patient's initial sepsis screen is negative. Does the patient have a suspected source of infection? No. Patient's initial sepsis screen is negative. Risk Assessment: Do you want to hurt yourself or someone else? Patient reports no desire to harm self or others. Onset of symptoms was July 08, 2023. 06:38 Method Of Arrival: Ambulatory as6 06:38 Acuity: SHADY 4 as6 Triage Assessment: 06:43 General: Appears uncomfortable, Behavior is cooperative, crying, restless. Pain: as6 Complains of pain in lower right second molar Noted to be crying, guarding, restless. EENT: Poor dentition noted. Dental caries noted in lower right second molar (#31) Reports pain in lower right second molar. Neuro: Level of Consciousness is awake, alert, obeys commands, Oriented to person, place, time, situation. Cardiovascular: Capillary refill < 3 seconds Patient's skin is warm and dry. Respiratory: Respiratory effort is even, unlabored, Respiratory pattern is regular, symmetrical. GI: No deficits noted. No signs and/or symptoms were reported involving the gastrointestinal system. : No deficits noted. No signs and/or symptoms were reported regarding the genitourinary system. Derm: Skin is intact, is healthy with good turgor. Musculoskeletal: Circulation, motion, and sensation intact. Historical: - Allergies: 06:40 No Known Allergies; as6 - PMHx: 06:40 Hypertension; as6 - PSHx: 06:40 None; as6 - Immunization history:: Adult Immunizations not up to date. - Social history:: Smoking status: Patient denies any tobacco usage or history of. Patient uses street drugs, marijuana. Screenin:40 [facility] ED Fall Risk Assessment (Adult) Score/Fall Risk Level 0 - 2 = Low Risk. Abuse as6 screen: Denies threats or abuse. Denies injuries from another. Nutritional screening: No deficits noted. Tuberculosis screening: No symptoms or risk factors identified. Assessment: 06:45 General: see triage assessment . as6 Vital Signs: 06:38 BP 158 / 93; Pulse 58; Resp 18 S; Temp 97.9(TE); Pulse Ox 100% on R/A; Pain 10/10; as6 06:41 Weight 86.18 kg (R); Height 5 ft. 10 in. (R); as6 06:41 Body Mass Index 27.26 (86.18 kg, 177.8 cm) as6 06:38 Pain Scale: Adult as6 ED Course: 06:30 Patient arrived in ED. jj6 06:36 Sebastien Pedersen MD is Attending Physician. ec2 06:40 Triage completed. as6 06:40 Arm band placed on. as6 06:41 Bed in low position. Call light in reach. as6 06:41 No provider procedures requiring assistance completed. as6 06:43 Boaz Adkins, JOSE is Primary Nurse. as6 06:46 Provided Education on: follw up with dentist . as6 06:46 Patient did not have IV access during this emergency room visit. as6 Administered Medications: 06:57 Drug: [place] PO 10 mg-325 mg 1 tabs PO once Route: PO; jw7 06:58 Follow up: Response: No adverse reaction jw7 06:57 Drug: Ketorolac IM 30 mg IM once Route: IM; Site: right deltoid; jw7 06:57 Follow up: Response: No adverse reaction jw7 06:57 Drug: Amoxicillin-Clavulanate PO 875 mg PO once Route: PO; jw7 06:57 Follow up: Response: No adverse reaction jw7 Medication: 06:40 VIS not applicable for this client. as6 Outcome: 06:43 Discharge ordered by . ec2 06:45 Discharged to home ambulatory, with significant other, as6 06:45 Condition: stable 06:50 Discharge instructions given to patient, significant other, Instructed on discharge as6 instructions, follow up and referral plans. medication usage, Demonstrated understanding of instructions, follow-up care, medications, Prescriptions given X 2 06:58 Patient left the ED. jw7 Signatures: Ute Larios jj6 Boaz Adkins RN RN as6 Charissa Melvin RN RN jw7 Sebastien Pedersen MD MD ec2
[2023-07-08] MEDS ORDERED: AMOX/K CLAV 875 MG TAB ONE (07:04)
[2023-07-08] MEDS ORDERED: HYDROCODONE/APAP 10/325 TAB ONE (07:05)
[2023-07-08] MEDS ORDERED: KETOROLAC 30 MG/ML INJ ONE (07:05)
[2023-07-08 07:06] VITALS: BP 158/93; TEMP 97.9; O2SAT 100
== END 2023-07-08 06:58 | disposition home or self-care (01) ==
LOC: ER 06:28
DX: K02.9 Dental caries, unspecified (principal)
CPT/HCPCS: 96372; 99284

== ENCOUNTER 2024-05-12 01:42 | Emergency (ER) | payer SELFPAY ==
--- OUTSIDE RECORDS SUMMARY | 2024-05-12 01:45 | XMS REPORT | Continuity of Care Document ---
Author Name Unknown Address [address] [place] [address] thconnect Address [address] [place] [address] [address] [place] [address] Care Team Providers Care Drug Safety Associate Name Role Phone Unavailable Unavailable Unavailable Encounters Start Date/Time End Date/Time Encounter Type Admission Type Attending Clinicians Care Facility Care Department Encounter ID Source 2023-07-18 12:04:10 2023-07-18 12:04:10 Outpatient [facility] [id number] Angel Mosley
--- NOTE | 2024-05-12 01:51 | EDPHYS ---
Physician Documentation [facility] Name: Rober Pickett Age: 34 yrs Sex: Male : 1990 Arrival Date: 05/12/2024 Time: 01:42 Bed 5 Private MD: ED Physician Dolly Roman HPI: 05/12 01:48 This 34 yrs old Black Male presents to ER via EMS with complaints of Chest Congestion. sp3 01:48 34-year-old male with history of hypertension now presents via EMS from police custody sp3 secondary to congestion, chest pain which has now fully resolved, and general cough and congestion type symptoms. Patient states that symptoms started 4 days ago. Today he was pulled over for traffic stop and had outstanding warrants and was taken to long term. Upon arriving to long term he started to have the symptoms and authorities activated EMS to bring him here. He denies any ongoing symptoms, headache, fever, neck pain, shortness of breath, current chest pain, abdominal pain, nausea, vomiting, diarrhea, syncope, near syncope, rash, known sick contacts, prolonged immobilization, or any other signs or symptoms on ROS at this time.. Historical: - Allergies: 01:47 No Known Allergies; bm8 - Home Meds: 01:47 lisinopril 10 mg Oral tab 1 tab once daily [Active]; bm8 - PMHx: 01:47 Hypertension; bm8 - PSHx: 01:47 None; bm8 - Immunization history:: Adult Immunizations unknown. - Infectious Disease History:: Denies. - Social history:: Smoking status: Patient denies any tobacco usage or history of. Patient uses street drugs, marijuana, Patient/guardian denies using alcohol. ROS: 01:49 Constitutional: Negative for fever, chills, and weight loss, Eyes: Negative for injury, sp3 pain, redness, and discharge, Neck: Negative for injury, pain, and swelling, Cardiovascular: Negative for chest pain, palpitations, and edema, Respiratory: Negative for shortness of breath, cough, wheezing, and pleuritic chest pain, Abdomen/GI: Negative for abdominal pain, nausea, vomiting, diarrhea, and constipation, Back: Negative for injury and pain, MS/Extremity: Negative for injury and deformity, Skin: Negative for injury, rash, and discoloration, Neuro: Negative for headache, weakness, numbness, tingling, and seizure, 01:49 All other systems are negative, Exam: 01:49 Constitutional: This is a well developed, well nourished patient who is awake, alert, sp3 and in no acute distress. Head/Face: Normocephalic, atraumatic. Eyes: Pupils equal round and reactive to light, extra-ocular motions intact. Lids and lashes normal. Conjunctiva and sclera are non-icteric and not injected. Cornea within normal limits. Periorbital areas with no swelling, redness, or edema. ENT: Nares patent. No nasal discharge, no septal abnormalities noted. External auditory canals are clear. Oropharynx with no redness, swelling, or masses, exudates, or evidence of obstruction, uvula midline. Mucous membranes moist. Neck: Trachea midline, no thyromegaly or masses palpated, and no cervical lymphadenopathy. Supple, full range of motion without nuchal rigidity, or vertebral point tenderness. No Meningismus. Chest/axilla: Normal chest wall appearance and motion. Nontender with no deformity. No lesions are appreciated. Cardiovascular: Regular rate and rhythm with a normal S1 and S2. No gallops, murmurs, or rubs. Normal PMI, no JVD. No pulse deficits. Respiratory: Lungs have equal breath sounds bilaterally, clear to auscultation and percussion. No rales, rhonchi or wheezes noted. No increased work of breathing, no retractions or nasal flaring. Abdomen/GI: Soft, non-tender, with normal bowel sounds. No distension or tympany. No guarding or rebound. No evidence of tenderness throughout. Back: No spinal tenderness. No costovertebral tenderness. Full range of motion. Skin: Warm, dry with normal turgor. Normal color with no rashes, no lesions, and no evidence of cellulitis. MS/ Extremity: Pulses equal, no cyanosis. Neurovascular intact. Full, normal range of motion. Neuro: Awake and alert, GCS 15, oriented to person, place, time, and situation. Cranial nerves II-XII grossly intact. Motor strength 5/5 in all extremities. Sensory grossly intact. Cerebellar exam normal. Normal gait. Psych: Awake, alert, with orientation to person, place and time. Behavior, mood, and affect are within normal limits. Vital Signs: 01:46 BP 137 / 84; Pulse 72; Resp 18; Temp 98.1; Pulse Ox 97% ; Weight 95.25 kg; Height 5 ft. bm8 9 in. ; Pain 0/10; 01:46 Body Mass Index 31.01 (95.25 kg, 175.26 cm) bm8 01:46 Pain Scale: Adult bm8 [place] Coma Score: 01:50 Eye Response: spontaneous(4). Motor Response: obeys commands(6). Verbal Response: bm8 oriented(5). Total: 15. MDM: 01:47 Patient medically screened. sp3 01:49 Data reviewed: vital signs, nurses notes, EMS record. ED course: EMS EKG demonstrates sp3 normal sinus rhythm with no significant findings. Clinically patient likely has sinusitis versus URI. Will be conservative and treat with Zithromax and OTC meds. Clinically have ruled out acute coronary syndrome, PE, pneumonia, thoracic aortic aneurysm, sepsis, shock any other critical process. Vital signs are normal and patient is in no acute distress. We will safely discharge home at this time.. Administered Medications: No medications were administered Disposition Summary: 24 01:50 Discharge Ordered Notes: Location: Home sp3 Condition: Stable sp3 Diagnosis - Sinusitis sp3 Followup: sp3 - With: Private Physician - When: Upon discharge from the Emergency Department - Reason: Continuance of care Discharge Instructions: - Discharge Summary Sheet sp3 - Sinusitis, Adult sp3 Forms: - Medication Reconciliation Form sp3 - Antibiotic Education sp3 - Prescription Opioid Use sp3 - Patient Portal Instructions sp3 - Leadership Thank You Letter sp3 Prescriptions: - Zithromax Z-Thomas 250 mg Oral Tablet - take 1 tablet ORAL route as directed for 5 days Day 1 - take two (2) tablets sp3 one time. Day 2, 3, 4 , 5 take one (1) tablet once daily.; 6 tablet; Refills: 0, Product Selection Permitted Signatures: Dolly Roman MD MD sp3 Jun Mclean RN RN bm8 Corrections: (The following items were deleted from the chart) 01:48 01:47 PSHx: Unable to Obtain; bm8 bm8
--- NOTE | 2024-05-12 01:51 | ER ---
Nurse's Notes [facility] Name: Rober Pickett Age: 34 yrs Sex: Male : 1990 Arrival Date: 05/12/2024 Time: 01:42 Bed 5 Private MD: Diagnosis: Sinusitis Presentation: 05/12 01:46 Chief complaint: Patient states: I have had chest congestion with no fever for a while bm8 and its making my chest hurt. Coronavirus screen: At this time, the client does not indicate any symptoms associated with coronavirus-19. Ebola Screen: Patient negative for fever greater than or equal to 101.5 degrees Fahrenheit, and additional compatible Ebola Virus Disease symptoms Patient denies exposure to infectious person. Patient denies travel to an Ebola-affected area in the 21 days before illness onset. No symptoms or risks identified at this time. Initial Sepsis Screen: Does the patient meet any 2 criteria? No. Patient's initial sepsis screen is negative. Does the patient have a suspected source of infection? No. Patient's initial sepsis screen is negative. 01:46 Method Of Arrival: EMS: [facility] bm8 01:46 Risk Assessment: Do you want to hurt yourself or someone else? Patient reports no bm8 desire to harm self or others. Onset of symptoms is unknown. 01:46 Acuity: SHADY 4 bm8 01:56 Care prior to arrival: IV initiated. 20 GA, in the left forearm. bm8 01:56 Care prior to arrival: Medication(s) given: ASA, 81 mg, x 4. bm8 Triage Assessment: 01:47 General: Appears in no apparent distress. comfortable, Behavior is calm, cooperative, bm8 appropriate for age. Pain: Denies pain. EENT: Reports nasal congestion. Neuro: No deficits noted. Level of Consciousness is awake, alert, obeys commands, Oriented to person, place, time, situation, Appropriate for age. Cardiovascular: Heart tones S1 S2 present Capillary refill < 3 seconds Patient's skin is warm and dry. Respiratory: Airway is patent Respiratory effort is even, unlabored, Respiratory pattern is regular, symmetrical, Breath sounds are clear bilaterally. GI: No signs and/or symptoms were reported involving the gastrointestinal system. : No signs and/or symptoms were reported regarding the genitourinary system. Derm: No signs and/or symptoms reported regarding the dermatologic system. Musculoskeletal: No signs and/or symptoms reported regarding the musculoskeletal system. Historical: - Allergies: :47 No Known Allergies; bm8 - Home Meds: :47 lisinopril 10 mg Oral tab 1 tab once daily [Active]; bm8 - PMHx: :47 Hypertension; bm8 - PSHx: 01:47 None; bm8 - Immunization history:: Adult Immunizations unknown. - Infectious Disease History:: Denies. - Social history:: Smoking status: Patient denies any tobacco usage or history of. Patient uses street drugs, marijuana, Patient/guardian denies using alcohol. Screenin:50 [facility] ED Fall Risk Assessment (Adult) History of falling in the last 3 months, bm8 including since admission No falls in past 3 months (0 pts) Confusion or Disorientation No (0 pts) Intoxicated or Sedated Yes (3 pts) Impaired Gait No (0 pts) Mobility Assist Device Used No (0 pt) Altered Elimination No (0 pt) Score/Fall Risk Level 0 - 2 = Low Risk Oriented to surroundings, Maintained a safe environment, Educated pt \T\ family on fall prevention, incl call for assistance when getting out of bed, Assessed \T\ reinforced patient's understanding of fall precautions, Hourly rounding (assess needs \T\ fall precautionary measures) done, Used ambulatory aids as needed (educated on \T\ assisted with), Used gait belt as appropriate. Abuse screen: Denies threats or abuse. Nutritional screening: No deficits noted. Tuberculosis screening: No symptoms or risk factors identified. Assessment: :50 Reassessment: No changes from previously documented assessment. Patient and/or family bm8 updated on plan of care and expected duration. Pain level reassessed. Patient is alert, oriented x 3, equal unlabored respirations, skin warm/dry/pink. Vital Signs: 01:46 BP 137 / 84; Pulse 72; Resp 18; Temp 98.1; Pulse Ox 97% ; Weight 95.25 kg; Height 5 ft. bm8 9 in. ; Pain 0/10; 01:46 Body Mass Index 31.01 (95.25 kg, 175.26 cm) bm8 01:46 Pain Scale: Adult bm8 [place] Coma Score: 01:50 Eye Response: spontaneous(4). Motor Response: obeys commands(6). Verbal Response: bm8 oriented(5). Total: 15. ED Course: 01:45 Patient arrived in ED. bm8 01:47 Dolly Roman MD is Attending Physician. sp3 01:47 Triage completed. bm8 01:47 Arm band placed on right wrist. bm8 01:50 Patient has correct armband on for positive identification. Bed in low position. Call bm8 light in reach. Side rails up X 1. Client placed on continuous cardiac and pulse oximetry monitoring. NIBP monitoring applied. Pulse ox on. NIBP on. Door closed. Noise minimized. Verbal reassurance given. Head of bed elevated. 01:50 No provider procedures requiring assistance completed. IV discontinued, intact, bm8 bleeding controlled, No redness/swelling at site. Pressure dressing applied. 01:57 Jun Mclean, RN is Primary Nurse. bm8 01:57 Provided Education on: post er care. bm8 Administered Medications: No medications were administered Medication: 01:50 VIS not applicable for this client. bm8 Outcome: 01:50 Discharge ordered by . sp3 01:57 Discharged to home ambulatory, bm8 01:57 Condition: stable 01:57 Discharge instructions given to patient, Instructed on discharge instructions, follow up and referral plans. Demonstrated understanding of instructions, follow-up care, 02:02 Patient left the ED. bm8 Signatures: Dolly Roman MD MD sp3 Jun Mclean, RN RN bm8 Corrections: (The following items were deleted from the chart) 01:48 01:47 PSHx: Unable to Obtain; bm8 bm8
[2024-05-12 02:08] VITALS: BP 137/84; TEMP 98.1; O2SAT 97
== END 2024-05-12 02:02 | disposition home or self-care (01) ==
LOC: ER 01:42
DX: J32.9 Chronic sinusitis, unspecified (principal)
CPT/HCPCS: 99284

== ENCOUNTER 2024-06-24 13:11 | Emergency (ER) | payer SELFPAY ==
--- OUTSIDE RECORDS SUMMARY | 2024-06-24 13:13 | XMS REPORT | Continuity of Care Document ---
Author Name Unknown Address [address] [place] [address] thconnect Address [address] [place] [address] [address] [place] [address] Care Team Providers Care Stock Fitter Name Role Phone Unavailable Unavailable Unavailable Encounters Start Date/Time End Date/Time Encounter Type Admission Type Attending Clinicians Care Facility Care Department Encounter ID Source 2023-07-18 12:04:10 2023-07-18 12:04:10 Outpatient [facility] [id number] Angel Mosley
[2024-06-24] MEDS ORDERED: IBUPROFEN 400 MG TAB ONE (14:46)
--- NOTE | 2024-06-24 16:01 | RAD REPORT ---
EXAMINATION: CT MAXILLOFACIAL WITHOUT CONTRAST CLINICAL INDICATION: [facility] HEADACHE Bed Name: 6 TECHNIQUE: Axial images were obtained through the facial bones and orbits without intravenous contras t. Sagittal and coronal reconstructions were created from the data. One or more of the following dose reduction techniques were used: Automated exposure control, adjustment of the mA and/or kV accor ding to patient size, and/or iterative reconstruction. Unless otherwise specified, incidental findings do not require dedicated imaging follow-up. COMPARISON: No prior exam. FINDINGS: SOFT TISSUE: Mild right periorbital edema. No hematoma. Dental hardware results in streak artifact wh ich somewhat limits evaluation. BONES: No evidence of fracture or dislocation. Irregularities along the nasal bones bilaterally may r elate to remote fractures. Some sclerosis along the right mandibular alveolus may relate to sequelae of extraction or prior osteomyelitis. Periapical lucencies along the posterior most right mo lar. No lesion of the visualized skull base or calvarium. ORBITS: The globes are intact. No intraorbital hemorrhage or mass. SINUSES: Near complete right maxillary sinus opacification with small air-fluid level. Opacification throughout the right ostiomeatal unit, anterior ethmoidal air cells, and right frontal sinus with air-fluid level in the right frontal sinus as well. Polypoidal mucosal thickening with aerated secret ions in the left maxillary sinus. Mild narrowing of the left ostiomeatal unit. Other mild scattered inflammatory mucosal thickening with small left sphenoid sinus mucus retention cyst. Sphenoethmoidal drainage pathways are patent. IMPRESSION: Mild right periorbital edema, nonspecific. At least moderate scattered inflammatory mucosal changes throughout the paranasal sinuses more pronou nced along the right middle meatal pathway. Please correlate clinically for evidence of acute sinusitis. Other findings as above.
--- NOTE | 2024-06-24 16:26 | ER ---
Nurse's Notes [facility] Name: Rober Pickett Age: 34 yrs Sex: Male : 1990 Arrival Date: 06/24/2024 Time: 13:11 Bed 6 Private MD: Diagnosis: Acute maxillary sinusitis, unspecified;Other diseases of pulp and periapical tissues Presentation: 06/24 13:30 Chief complaint: Patient states: WOKE UP THIS MORNING WITH PAIN BEHIND RIGHT EYE AND cm10 PAIN TO HIS HEAD. PT REPORTS PHOTOPHOBIA. Coronavirus screen: Client denies travel out of the [place] in the last 14 days. Ebola Screen: Patient denies travel to an Ebola-affected area in the 21 days before illness onset. No symptoms or risks identified at this time. Mechanism of Injury: No Mechanism of Injury. The patient denies any loss of vision. Initial Sepsis Screen: Does the patient meet any 2 criteria? No. Patient's initial sepsis screen is negative. Does the patient have a suspected source of infection? No. Patient's initial sepsis screen is negative. Risk Assessment: Do you want to hurt yourself or someone else? Patient reports no desire to harm self or others. Onset of symptoms was June 24, 2024. 13:30 Method Of Arrival: Ambulatory cm10 13:30 Acuity: SHADY 3 cm10 Triage Assessment: 13:32 General: Appears in no apparent distress. uncomfortable, Behavior is calm, cooperative. cm10 Neuro: No deficits noted. Level of Consciousness is awake, alert, obeys commands, Oriented to person, place, time, situation, Appropriate for age. Respiratory: No deficits noted. Airway is patent Respiratory effort is even, unlabored, Respiratory pattern is regular, symmetrical. Historical: - Allergies: 13:32 No Known Allergies; cm10 - PMHx: 13:32 Hypertension; cm10 - PSHx: 13:32 None; cm10 - Immunization history:: Adult Immunizations up to date. - Infectious Disease History:: Denies. - Social history:: Smoking status: Patient reports the use of cigarette tobacco products, denies chronic smoking, but will smoke occasionally. Screenin:33 [facility] ED Fall Risk Assessment (Adult) History of falling in the last 3 months, ph including since admission No falls in past 3 months (0 pts) Confusion or Disorientation No (0 pts) Intoxicated or Sedated No (0 pts) Impaired Gait No (0 pts) Mobility Assist Device Used No (0 pt) Altered Elimination No (0 pt) Score/Fall Risk Level 0 - 2 = Low Risk Oriented to surroundings, Maintained a safe environment, Hourly rounding (assess needs \T\ fall precautionary measures) done. Abuse screen: Denies threats or abuse. Denies injuries from another. Nutritional screening: No deficits noted. Tuberculosis screening: No symptoms or risk factors identified. Assessment: 14:44 General: Appears uncomfortable, Behavior is calm, cooperative, appropriate for age. bp Pain: Complains of pain in head. EENT: No deficits noted. Eyes WNL. Sclera/Cornea are clear in right eye and left eye. Vital Signs: 13:32 BP 171 / 102; Pulse 83; Resp 18; Temp 98.7(TE); Pulse Ox 99% on R/A; Weight 92.99 kg; cm10 Height 5 ft. 10 in. ; Pain 8/10; 16:01 BP 167 / 92; Pulse 78; Resp 18; Pulse Ox 99% on R/A; ph 13:32 Body Mass Index 29.41 (92.99 kg, 177.8 cm) cm10 13:32 Pain Scale: Adult cm10 ED Course: 13:12 Patient arrived in ED. mr 13:18 Savannah Reilly MD is Attending Physician. gb1 13:31 Triage completed. cm10 13:33 Arm band placed on Patient placed in waiting room. cm10 14:09 Sara Marx, RN is Primary Nurse. ph 14:44 Patient has correct armband on for positive identification. bp 14:53 CT Facial Bones W/O Con In Process Unspecified. EDMS 16:36 No provider procedures requiring assistance completed. Patient did not have IV access ph during this emergency room visit. Administered Medications: 14:50 Drug: Ibuprofen PO 800 mg PO once Route: PO; bp 15:05 Follow up: Response: No adverse reaction bp Medication: 14:33 VIS not applicable for this client. ph Outcome: 16:25 Discharge ordered by . gb1 16:37 Discharged to home ambulatory, with family, ph 16:37 Condition: good 16:37 Discharge instructions given to patient, Instructed on discharge instructions, follow up and referral plans. medication usage, Demonstrated understanding of instructions, follow-up care, medications, Prescriptions given X 2, 16:37 Patient left the ED. ph Signatures: Dispatcher [employer] Toshia Nolan, Reg Reg mr Sara Marx, RN RN Louie Montes De Oca RN RN bp Martinez, Clarissa, RN RN cm10 Savannah Reilly MD MD gb1
--- NOTE | 2024-06-24 16:26 | EDPHYS ---
Physician Documentation [facility] Name: Rober Pickett Age: 34 yrs Sex: Male : 1990 Arrival Date: 06/24/2024 Time: 13:11 Bed 6 Private MD: ED Physician Savannah Reilly HPI: 06/24 14:50 This 34 yrs old Black Male presents to ER via Ambulatory with complaints of Eye Pain, gb1 Headache. 14:50 34-year-old male with right sided headache behind the eye. Patient has had this gb1 headache for the last couple days and that starts at the same time every day. He states to me that he has 6 kids and he has been really stressed lately. Patient has a history of migraines as well. He also has a tooth on the right side in the upper jaw that he has been told has to come out. He has overall poor dentition. He states the headache is intermittent and he does awaken from sleep and it slowly comes on around 11:00 and tapers off around 4:00.. Historical: - Allergies: 13:32 No Known Allergies; cm10 - PMHx: 13:32 Hypertension; cm10 - PSHx: 13:32 None; cm10 - Immunization history:: Adult Immunizations up to date. - Infectious Disease History:: Denies. - Social history:: Smoking status: Patient reports the use of cigarette tobacco products, denies chronic smoking, but will smoke occasionally. Exam: 14:50 Constitutional: This is a well developed, well nourished patient who is awake, alert, gb1 and in no acute distress. Head/Face: Normocephalic, atraumatic. Eyes: Pupils equal round and reactive to light, extra-ocular motions intact. Lids and lashes normal. Conjunctiva and sclera are non-icteric and not injected. Cornea within normal limits. Periorbital areas with no swelling, redness, or edema. ENT: Nares patent. No nasal discharge, no septal abnormalities noted. Tympanic membranes are normal and external auditory canals are clear. Oropharynx with no redness, swelling, or masses, exudates, or evidence of obstruction, uvula midline. Mucous membranes moist. Neck: Trachea midline, no thyromegaly or masses palpated, and no cervical lymphadenopathy. Supple, full range of motion without nuchal rigidity, or vertebral point tenderness. No Meningismus. Chest/axilla: Normal chest wall appearance and motion. Nontender with no deformity. No lesions are appreciated. Cardiovascular: Regular rate and rhythm with a normal S1 and S2. No gallops, murmurs, or rubs. Normal PMI, no JVD. No pulse deficits. Respiratory: Lungs have equal breath sounds bilaterally, clear to auscultation and percussion. No rales, rhonchi or wheezes noted. No increased work of breathing, no retractions or nasal flaring. Abdomen/GI: Soft, non-tender, with normal bowel sounds. No distension or tympany. No guarding or rebound. No evidence of tenderness throughout. Back: No spinal tenderness. No costovertebral tenderness. Full range of motion. Skin: Warm, dry with normal turgor. Normal color with no rashes, no lesions, and no evidence of cellulitis. MS/ Extremity: Pulses equal, no cyanosis. Neurovascular intact. Full, normal range of motion. Neuro: Awake and alert, GCS 15, oriented to person, place, time, and situation. Cranial nerves II-XII grossly intact. Motor strength 5/5 in all extremities. Sensory grossly intact. Cerebellar exam normal. Normal gait. Vital Signs: 13:32 BP 171 / 102; Pulse 83; Resp 18; Temp 98.7(TE); Pulse Ox 99% on R/A; Weight 92.99 kg; cm10 Height 5 ft. 10 in. ; Pain 8/10; 16:01 BP 167 / 92; Pulse 78; Resp 18; Pulse Ox 99% on R/A; ph 13:32 Body Mass Index 29.41 (92.99 kg, 177.8 cm) cm10 13:32 Pain Scale: Adult cm10 MDM: 13:41 Medical Screening Exam initiated gb1 14:50 Data reviewed: radiologic studies, CT scan. gb1 16:27 ED course: 34-year-old with right-sided eye pain and face pain has an acute sinusitis gb1 would like a likely periapical abscess as well on the right secondary to dentition is poor. I recommend 5 days of Augmentin and prednisone and then routine follow-up with his dentist of record for evaluation for either extraction or root canal.. 06/24 14:44 Order name: CT Facial Bones W/O Con; Complete Time: 16:23 gb1 Administered Medications: 14:50 Drug: Ibuprofen PO 800 mg PO once Route: PO; bp 15:05 Follow up: Response: No adverse reaction bp Disposition Summary: 06/24/24 16:25 Discharge Ordered Notes: Location: Home gb1 Problem: an acute exacerbation gb1 Symptoms: have worsened gb1 Condition: Stable gb1 Diagnosis - Acute maxillary sinusitis, unspecified gb1 - Other diseases of pulp and periapical tissues gb1 Followup: gb1 - With: Private Physician - When: - Reason: Continuance of care Discharge Instructions: - Discharge Summary Sheet gb1 - Sinusitis, Adult, [id number] gb1 - How to Perform a Sinus Rinse, [id number] gb1 - Dental Abscess, [id number] gb1 Forms: - Medication Reconciliation Form gb1 - Antibiotic Education gb1 - Prescription Opioid Use gb1 - Patient Portal Instructions gb1 - Leadership Thank You Letter gb1 Prescriptions: - Augmentin 875-125 mg Oral Tablet - take 1 tablet ORAL route every 12 hours for 10 days; 20 tablet; Refills: 0, gb1 Product Selection Permitted - Prednisone 20 mg Oral Tablet - take 3 tablets ORAL route once daily for 5 days; 15 tablet; Refills: 0, Product gb1 Selection Permitted Signatures: Dispatcher [employer] Louie Christensen, Robyn Mabry RN, RN RN cm10 Savannah Reilly MD MD gb1
[2024-06-24 16:43] VITALS: TEMP 98.7; O2SAT 99
[2024-06-24 16:44] VITALS: BP 167/92
== END 2024-06-24 16:37 | disposition home or self-care (01) ==
LOC: ER 13:11
DX: J01.00 Acute maxillary sinusitis, unspecified (principal); K04.99 Other diseases of pulp and periapical tissues; F17.210 Nicotine dependence, cigarettes, uncomplicated
CPT/HCPCS: 70486; 76377

== ENCOUNTER 2024-09-23 08:42 | Emergency (ER) | payer SELFPAY ==
--- OUTSIDE RECORDS SUMMARY | 2024-09-23 08:45 | XMS REPORT | Continuity of Care Document ---
Author Name Unknown Address [address] [place] [address] thconnect Address [address] [place] [address] [address] [place] [address] Care Team Providers Care Engineering Inspection Assistant Name Role Phone Unavailable Unavailable Unavailable Encounters Start Date/Time End Date/Time Encounter Type Admission Type Attending Clinicians Care Facility Care Department Encounter ID Source 2023-07-18 12:04:10 2023-07-18 12:04:10 Outpatient [facility] [id number] Angel Mosley
--- NOTE | 2024-09-23 09:22 | ER ---
Nurse's Notes [facility] Name: Rober Pickett Age: 34 yrs Sex: Male : 1990 Arrival Date: 09/23/2024 Time: 08:42 Bed DX3 Private MD: Diagnosis: Acute pharyngitis, unspecified Presentation: 09/23 09:11 Chief complaint: Patient states: i get abscesses on my tonsils since i was little , I iw can tell I have one on my right side , started 4 days ago. Coronavirus screen: At this time, the client does not indicate any symptoms associated with coronavirus-19. Ebola Screen: No symptoms or risks identified at this time. Initial Sepsis Screen: Does the patient meet any 2 criteria? No. Patient's initial sepsis screen is negative. Does the patient have a suspected source of infection? No. Patient's initial sepsis screen is negative. Risk Assessment: Do you want to hurt yourself or someone else? Patient reports no desire to harm self or others. Onset of symptoms was September 19, 2024. 09:11 Method Of Arrival: Ambulatory iw 09:14 Acuity: SHADY 4 iw Triage Assessment: 09:15 General: Appears in no apparent distress. Behavior is calm, cooperative. iw Historical: - Allergies: 09:14 No Known Allergies; iw - Home Meds: 09:14 None [Active]; iw - PMHx: 09:14 Hypertension; iw - Immunization history:: Adult Immunizations. - Infectious Disease History:: Denies. - Social history:: Smoking status: . Screenin:42 [facility] ED Fall Risk Assessment (Adult) History of falling in the last 3 months, iw including since admission No falls in past 3 months (0 pts) Confusion or Disorientation No (0 pts) Intoxicated or Sedated No (0 pts) Impaired Gait No (0 pts) Mobility Assist Device Used No (0 pt) Altered Elimination No (0 pt) Score/Fall Risk Level 0 - 2 = Low Risk Oriented to surroundings, Maintained a safe environment. Abuse screen: Denies threats or abuse. Denies injuries from another. Nutritional screening: No deficits noted. Tuberculosis screening: No symptoms or risk factors identified. Assessment: 09:15 General: Appears in no apparent distress. Behavior is calm, cooperative. Pain: iw Complains of pain in throat. Neuro: Level of Consciousness is awake, alert, obeys commands, Oriented to person, place, time, situation, Moves all extremities. Full function. Cardiovascular: Patient's skin is warm and dry. Respiratory: Respiratory effort is even, unlabored, Respiratory pattern is regular, symmetrical. EENT: Throat has enlarged tonsils on right with gag reflex present. Derm: Skin is intact, is healthy with good turgor. Musculoskeletal: Range of motion: intact in all extremities. Vital Signs: 09:11 BP 139 / 98; Pulse 78; Resp 18; Temp 97.4; Pulse Ox 100% on R/A; Weight 92.99 kg; iw Height 5 ft. 10 in. ; Pain 10/10; 09:11 Body Mass Index 29.41 (92.99 kg, 177.8 cm) iw 09:11 Pain Scale: Adult iw ED Course: 08:46 Patient arrived in ED. al6 09:06 Sebastien Pedersen MD is Attending Physician. ec2 09:14 Triage completed. iw 09:14 Arm band placed on. iw 09:15 Patient has correct armband on for positive identification. Provided Education on: . iw 09:26 Kelsey Warren, RN is Primary Nurse. iw 09:42 No provider procedures requiring assistance completed. Patient did not have IV access iw during this emergency room visit. Administered Medications: 09:21 CANCELLED (Physician Discretion): trimethoprim-sulfamethoxazole(160 mg-800 mg (ds) 1 ec2 tablet PO once 09:34 Drug: Amoxicillin-Clavulanate PO 875 mg PO once Route: PO; ld1 09:45 Follow up: Response: No adverse reaction ld1 Medication: 09:41 VIS not applicable for this client. iw Outcome: 09:21 Discharge ordered by . ec2 09:42 Discharged to home ambulatory, iw 09:42 Condition: good 09:42 Discharge instructions given to patient, Instructed on discharge instructions, follow up and referral plans. Demonstrated understanding of instructions, follow-up care, medications, Prescriptions given X 1, 09:43 Patient left the ED. iw Signatures: Kelsey Warren, JOSE GARCIA iw Kaya Mi RN RN ld1 Sebastien Pedersen MD MD ec2 Divya Stein al6 Corrections: (The following items were deleted from the chart) 19:33 09:42 Discharge instructions given to patient, Instructed on discharge instructions, iw follow up and referral plans. Demonstrated understanding of instructions, follow-up care, medications, Prescriptions given X iw
--- NOTE | 2024-09-23 09:22 | EDPHYS ---
Physician Documentation [facility] Name: Rober Pickett Age: 34 yrs Sex: Male : 1990 Arrival Date: 09/23/2024 Time: 08:42 Bed DX3 Private MD: ED Physician Sebastien Pedersen HPI: 09/23 09:24 This 34 yrs old Black Male presents to ER via Ambulatory with complaints of Abscess. ec2 09:24 Patient arrives today for sore throat. Complaining of pain, odynophagia. Reports ec2 history of recurrent strep pharyngitis. Denies any fevers or nausea or vomiting.. Historical: - Allergies: 09:14 No Known Allergies; iw - Home Meds: 09:14 None [Active]; iw - PMHx: 09:14 Hypertension; iw - Immunization history:: Adult Immunizations. - Infectious Disease History:: Denies. - Social history:: Smoking status: . Exam: 09:24 Constitutional: GEN: NAD Head: atraumatic Eyes: EOMI Ears: External ears are normal. ec2 Mouth: Posterior pharyngeal erythema without exudates appreciated, no abscess appreciated. CV: regular rate LUNGS: no respiratory distress ABD: non-distended SKIN: no evidence of rashes MSK: no evidence of trauma Vital Signs: 09:11 BP 139 / 98; Pulse 78; Resp 18; Temp 97.4; Pulse Ox 100% on R/A; Weight 92.99 kg; iw Height 5 ft. 10 in. ; Pain 10/10; 09:11 Body Mass Index 29.41 (92.99 kg, 177.8 cm) iw 09:11 Pain Scale: Adult iw MDM: 09:17 Medical Screening Exam initiated ec2 09:24 Data reviewed: vital signs, nurses notes. ED course: Patient arrives today for sore ec2 throat. Examination is revealing for HEENT findings as above. Presentation consistent with pharyngitis. Patient recommends an outpatient follow-up PCP. Return precautions given.. 09/23 09:20 Order name: Strep ec2 Administered Medications: 09:21 CANCELLED (Physician Discretion): trimethoprim-sulfamethoxazole(160 mg-800 mg (ds) 1 ec2 tablet PO once 09:34 Drug: Amoxicillin-Clavulanate PO 875 mg PO once Route: PO; ld1 09:45 Follow up: Response: No adverse reaction ld1 Disposition Summary: 09/23/24 09:21 Discharge Ordered Notes: Location: Home ec2 Condition: Stable ec2 Diagnosis - Acute pharyngitis, unspecified ec2 Followup: ec2 - With: Private Physician - When: - Reason: Re-evaluation by your physician Discharge Instructions: - Discharge Summary Sheet ec2 - Pharyngitis, [id number] ec2 Forms: - Medication Reconciliation Form ec2 - Antibiotic Education ec2 - Prescription Opioid Use ec2 - Patient Portal Instructions ec2 - Leadership Thank You Letter ec2 Prescriptions: - Augmentin 875-125 mg Oral Tablet - take 1 tablet ORAL route every 12 hours for 10 days; 20 tablet; Refills: 0, ec2 Product Selection Permitted Signatures: Dispatcher [employer] Kelsey Coleman RN RN iw Kaya Mi RN RN ld1 Sebastien Pedersen MD MD ec2 Corrections: (The following items were deleted from the chart) 09:21 09:20 Trimethoprim-Sulfamethoxazole PO (160 mg-800 mg (DS) 1 tablet PO once ordered. ec2ec2
[2024-09-23] MEDS ORDERED: AMOX/K CLAV 875 MG TAB ONE (09:31)
[2024-09-23 09:50] VITALS: BP 139/98; TEMP 97.4; O2SAT 100
== END 2024-09-23 09:43 | disposition home or self-care (01) ==
LOC: ER 08:42
DX: J02.9 Acute pharyngitis, unspecified (principal)
CPT/HCPCS: 87081